=== PATIENT | female | born 1930 | race Caucasian/White ===

== ENCOUNTER 2016-06-18 12:45 | Inpatient (IN) | payer MEDICARE, OTHER ==
--- NOTE | 2016-06-18 13:18 | EDM.PDOC ---
ED HISTORY OF PRESENT ILLNESS - General Chief Complaint: Respiratory Problem Stated Complaint: BY AMBULANCE Time Seen by Provider: 06/18/16 13:18 Source of Information: Reports: EMS, prison records, Old records, RN, RN notes reviewed - History of Present Illness INITIAL COMMENTS - FREE TEXT/NARRATIVE: Arrived by ambulance from senior living with history of 3-4 days of cough/cold symptoms and sudden onset of severe cough, possible aspiration with respiratory failure prior to arrival. Severity: moderate Location, General: Reports: chest Improves with: Reports: None Worsens with: Reports: None - Related Data Allergies/ADRs: Allergies Allergy/AdvReac Type Severity Reaction Status Date / Time atorvastatin calcium Allergy Body Aches Verified 06/18/16 15:35 [From Lipitor] tramadol Allergy Dizziness Verified 06/18/16 15:35 triamterene [Triamterene] Allergy Cannot Verified 06/18/16 15:35 Remember oxycodone HCl [From Percocet] AdvReac Cannot Verified 06/18/16 15:35 Remember Home Meds: Home Meds Alendronate [Fosamax] 70 mg PO Q7D@0609/21/13 [History] Aspirin [Ecotrin] 81 [place] 79909/21/13 [History] Calcium Carbonate/Vitamin D3 [Calcium 250+D] 1 each PO ,09/21/13 [History] Levothyroxine [Synthroid] [place] [address]/21/13 [History] Metoprolol Tartrate 75 mg PO 09/21/13 [History] Multivit-Min/FA/Lycopene/Lut [Centrum Silver] 1 each PO 79909/21/13 [History] Phenytoin Sodium Extended [Dilantin] 100 mg PO 199909/21/13 [History] Phenytoin [Dilantin] 60 mg PO 79910/15/14 [History] Acetaminophen [Tylenol] 650 mg PO BID PRN 03/10/16 [History] Escitalopram [Lexapro] 10 mg PO 0803/10/16 [History] Menthol/Methyl Salicylate [Icy Hot Cream] 0 gm TOP Q4H PRN #0 tube 04/04/16 [Rx] Pantoprazole [Protonix] 40 mg PO ACBREAKFAST #30 tab.cr 04/04/16 [Rx] Docusate Sodium/Sennosides [Senna Plus] 1 tab PO 08,20 06/18/16 [History] Lidocaine [Lidocaine 5% Paraben-Free] 140 mg TRDERM 2100 06/18/16 [History] Potassium Chloride [Klor-Con 10] 20 meq PO Q48H 06/18/16 [History] amLODIPine [Norvasc] 10 mg PO 0800 06/18/16 [History] oxyCODONE 5 mg PO 08,14,20 06/18/16 [History] Past Medical History HEENT History: Reports: Impaired vision Other HEENT History: Patient wears glasses. 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: Musculoskeletal History: Reports: Osteoporosis Neurological History: Reports: CVA, Seizure Other Neuro History: see below Psychiatric History: Reports: Depression Endocrine/Metabolic History: Reports: Hypothyroidism, Osteoporosis Oncologic (Cancer) History: Reports: Colon Dermatologic History: Reports: Eczema Other Dermatologic History: denies - Past Surgical History Cardiovascular Surgical History: Reports: Carotid endarterectomy GI Surgical History: Reports: Colonoscopy Social & Family History - Family History Family Medical History: Noncontributory - Tobacco Use Smoking Status *Q: Never Smoker Second Hand Smoke Exposure: No - Caffeine Use Caffeine Use: Reports: None - Alcohol Use Days Per Week of Alcohol Use: 0 - Recreational Drug Use Recreational Drug Use: No Drug Use in Last 12 Months: No - Living Situation & Occupation Living situation: Reports: extended care facility ED ROS GENERAL - Review of Systems Review Of Systems: ROS reveals no pertinent complaints other than HPI. ED EXAM, GENERAL - Physical Exam Exam: See Below Exam Limited By: No limitations General Appearance: other (acute respiratory distress) Eye Exam: bilateral eye: normal inspection Ears: normal external exam, normal canal, hearing grossly normal, normal TMs Nose: normal inspection, normal mucosa, no blood Throat/Mouth: Normal inspection, Normal lips, Normal teeth, Normal gums, Normal oropharynx, Normal voice, No airway compromise Head: atraumatic, normocephalic Neck: normal inspection, supple, non-tender, full range of motion Respiratory/Chest: rhonchi (severe course rhonchi with faint wheezes ffor upper airway significant decreased sounds in bilateral lower half of lung temple. ) Cardiovascular: normal peripheral pulses, regular rate, rhythm, no edema, no gallop, no JVD, no murmur, no rub GI/Abdominal: non tender, no distention, other (obese) (Female) Exam: Deferred Rectal (Female) Exam: Deferred Back Exam: normal inspection, full range of motion, NT Extremities: other (bilateral 1+ lower extremity edema with River hose (knee high) .) Neurological: no motor/sensory deficits, other (decreased responsiveness on arrival. Answers and responds appropriately with BiPAP.) EKG INTERPRETATION EKG Date: 06/18/16 Time: 13:55 Rhythm: other (sinus rhythm) Rate (beats/min): 91 [place]: normal P-wave: present QRS: other (multiple atrial premature complexes.) ST-T: normal QT: normal Comparison: NA - no prior EKG Course - Vital Signs Last Recorded V/S: Last Vital Signs Temp 37.1 C 06/18/16 15:32 Pulse 85 06/18/16 15:32 Resp 16 06/18/16 15:32 BP 109/58 L 06/18/16 15:32 Pulse Ox 96 06/18/16 15:38 - Orders/Labs/Meds Orders: Active Orders 24 hr Category Date Time Status BIPAP Adult [RT BiPAP/CPAP] [RC] ASDIRECTED Care 06/18/16 13:28 Active Insert Roberson Catheter [Insert Urinary Catheter] [OM.PC] Care 06/18/16 13:30 Ordered Q24H Overnight Pulse Oximetry [RC] Click To Edit Care 06/18/16 13:27 Active Peripheral IV Care [RC] Care 06/18/16 13:27 Active RT Aerosol Therapy [RC] ASDIRECTED Care 06/18/16 13:30 Active Urinary Catheter Assessment [RC] Care 06/18/16 13:29 Active CULTURE BLOOD [BC] Stat Lab 06/18/16 13:25 Received CULTURE BLOOD [BC] Stat Lab 06/18/16 13:35 Results Sodium Chloride 0.9% [Saline Flush] Med 06/18/16 13:26 Active 10 ml FLUSH ASDIRECTED PRN Blood Culture x2 Reflex Set [OM.PC] Stat Oth 06/18/16 13:27 Ordered Peripheral IV Insertion Adult [OM.PC] Stat Oth 06/18/16 13:26 Ordered Pulse Oximetry Continuous Monitoring [OM.PC] Routine Oth 06/18/16 13:27 Ordered RT Supplemental Oxygen Titration [RESPCARE] Stat Oth 06/18/16 13:27 Active Medication Orders Acetaminophen (Tylenol) 650 mg PO Q4H PRN PRN Reason: Pain (Mild 1-3)/fever Sodium Chloride (Normal Saline) 1,000 mls @ 75 mls/hr IV ASDIRECTED LIYA Stop: 06/18/16 22:31 Ondansetron HCl (Zofran) 4 mg IVPUSH Q6H PRN PRN Reason: Nausea/Vomiting Sodium Chloride (Saline Flush) 10 ml FLUSH ASDIRECTED PRN PRN Reason: Keep Vein Open Last Admin: 06/18/16 14:07 Dose: 10 ml Labs: Laboratory Tests 06/18/16 06/18/16 06/18/16 Range/Units 13:25 13:25 13:25 WBC 12.1 H (5.0-10.0) 10^3/uL RBC 4.90 (4.2-5.4) 10^6/uL Hgb 14.8 (12.0-16.0) g/dL Hct 42.4 (37.0-47.0) % MCV 86.5 (80-100) fL MCH 30.2 (27.0-34.0) pg MCHC 34.9 (33.0-35.0) g/dL Plt Count 233 (150-450) 10^3/uL Neut % (Auto) 69.3 (42.2-75.2) % Lymph % (Auto) 20.5 (20.5-50.1) % Hand % (Auto) 9.6 H (2-8) % Eos % (Auto) 0.3 L (1.0-3.0) % Baso % (Auto) 0.3 (0.0-1.0) % ABG pH (7.35-7.45) ABG pCO2 (35-45) mmHg ABG pO2 (70-100) mmHg ABG HCO3 (22-26) mmol/L ABG O2 Saturation (95-100) % ABG Base Excess ((-2)-(+3)) mmol/L Mingo Test O2 Delivery Device Oxygen Flow Rate Sodium 123 L (135-145) mmol/L Potassium 4.0 (3.6-5.0) mmol/L Chloride 91 L (101-111) mmol/L Carbon Dioxide 21.0 (21.0-31.0) mmol/L Anion Gap 15.0 BUN 15 (7-18) mg/dL Creatinine 0.8 (0.6-1.3) mg/dL Est Cr Clr Drug Dosing TNP Estimated GFR (MDRD) > 60 BUN/Creatinine Ratio 18.75 Glucose 195 H (74-105) mg/dL Lactic Acid (0.5-2.2) mmol/L Calcium 8.4 (8.4-10.2) mg/dl Total Bilirubin 0.4 (0.2-1.0) mg/dL AST 45 H (10-42) IU/L ALT 36 (10-60) IU/L Alkaline Phosphatase 120 (42-121) IU/L Creatine Kinase 45 (26-174) IU/L Creatine Kinase Index 3.6 H (0-2.4) % CK-MB (CK-2) 1.60 (0.4-4.7) ng/mL Troponin I 0.08 H* (0.00-0.02) ng/ml B-Natriuretic Peptide 255 H (0-100) pg/ml Total Protein 7.5 (6.7-8.2) g/dl Albumin 3.6 (3.2-5.5) g/dl Globulin 3.9 Albumin/Globulin Ratio 0.92 Urine Color (YELLOW) Urine Appearance (CLEAR) Urine pH (5.0-9.0) Ur Specific Ript[place] (1.005-1.030) Urine Protein (NEGATIVE) Urine Glucose (UA) (NEGATIVE) Urine Ketones (NEGATIVE) Urine Occult Blood (NEGATIVE) Urine Nitrite (NEGATIVE) Urine Bilirubin (NEGATIVE) Urine Urobilinogen (0.2-1.0) mg/dL Ur Leukocyte Esterase (NEGATIVE) Urine RBC /HPF Urine WBC (0-5/HPF) /HPF Ur Epithelial Cells /HPF Urine Bacteria (0-FEW/HPF) /HPF Phenytoin 8.4 L (10-20) ug/dL 06/18/16 06/18/16 06/18/16 Range/Units 13:25 13:52 14:25 WBC (5.0-10.0) 10^3/uL RBC (4.2-5.4) 10^6/uL Hgb (12.0-16.0) g/dL Hct (37.0-47.0) % MCV (80-100) fL MCH (27.0-34.0) pg MCHC (33.0-35.0) g/dL Plt Count (150-450) 10^3/uL Neut % (Auto) (42.2-75.2) % Lymph % (Auto) (20.5-50.1) % Hand % (Auto) (2-8) % Eos % (Auto) (1.0-3.0) % Baso % (Auto) (0.0-1.0) % ABG pH 7.38 (7.35-7.45) ABG pCO2 37 (35-45) mmHg ABG pO2 79 (70-100) mmHg ABG HCO3 21.4 L (22-26) mmol/L ABG O2 Saturation 95 (95-100) % ABG Base Excess -3 L ((-2)-(+3)) mmol/L Mingo Test pos. O2 Delivery Device Bipap Oxygen Flow Rate 0 Sodium (135-145) mmol/L Potassium (3.6-5.0) mmol/L Chloride (101-111) mmol/L Carbon Dioxide (21.0-31.0) mmol/L Anion Gap BUN (7-18) mg/dL Creatinine (0.6-1.3) mg/dL Est Cr Clr Drug Dosing Estimated GFR (MDRD) BUN/Creatinine Ratio Glucose (74-105) mg/dL Lactic Acid 1.3 (0.5-2.2) mmol/L Calcium (8.4-10.2) mg/dl Total Bilirubin (0.2-1.0) mg/dL AST (10-42) IU/L ALT (10-60) IU/L Alkaline Phosphatase (42-121) IU/L Creatine Kinase (26-174) IU/L Creatine Kinase Index (0-2.4) % CK-MB (CK-2) (0.4-4.7) ng/mL Troponin I (0.00-0.02) ng/ml B-Natriuretic Peptide (0-100) pg/ml Total Protein (6.7-8.2) g/dl Albumin (3.2-5.5) g/dl Globulin Albumin/Globulin Ratio Urine Color Yellow (YELLOW) Urine Appearance Slightly cloudy (CLEAR) Urine pH 6.5 (5.0-9.0) Ur Specific R[place] >= 1.030 (1.005-1.030) Urine Protein >=300 H (NEGATIVE) Urine Glucose (UA) Negative (NEGATIVE) Urine Ketones Negative (NEGATIVE) Urine Occult Blood Moderate H (NEGATIVE) Urine Nitrite Negative (NEGATIVE) Urine Bilirubin Negative (NEGATIVE) Urine Urobilinogen 0.2 (0.2-1.0) mg/dL Ur Leukocyte Esterase Negative (NEGATIVE) Urine RBC 0-5 /HPF Urine WBC 0-5 (0-5/HPF) /HPF Ur Epithelial Cells Rare /HPF Urine Bacteria Many H (0-FEW/HPF) /HPF Phenytoin (10-20) ug/dL Meds: Medications Generic Name Dose Route Start Last Admin Trade Name Nedra PRN Reason Stop Dose Admin Acetaminophen 650 mg 06/18/16 15:32 Tylenol PO Q4H PRN Pain (Mild 1-3)/fever Sodium Chloride 1,000 mls @ 75 mls/hr 06/18/16 16:30 Normal Saline IV 06/18/16 22:31 ASDIRECTED LIYA Ondansetron HCl 4 mg 06/18/16 15:32 Zofran IVPUSH Q6H PRN Nausea/Vomiting Sodium Chloride 10 ml 06/18/16 13:26 06/18/16 14:07 Saline Flush FLUSH 10 ml ASDIRECTED PRN Administration Keep Vein Open Discontinued Medications Generic Name Dose Route Start Last Admin Trade Name Nedra PRN Reason Stop Dose Admin Albuterol/Ipratropium 3 ml 06/18/16 13:30 06/18/16 13:45 Duoneb 3.0-0.5 Mg/3 Ml NEB 06/18/16 13:31 3 ml ONETIME ONE Administration Furosemide Confirm 06/18/16 13:23 06/18/16 14:56 Lasix Administered 06/18/16 13:24 Not Given Dose 80 mg .ROUTE .STK-MED ONE Furosemide 80 mg 06/18/16 13:25 06/18/16 13:25 Lasix IVPUSH 06/18/16 13:26 80 mg NOW ONE Administration Piperacillin Sod/Tazobactam 100 mls @ 200 mls/hr 06/18/16 13:30 06/18/16 13: 45 Sod 3.375 gm/ Sodium Chloride IV 06/18/16 13:59 200 mls/hr ONETIME ONE Administration Sodium Chloride 1,000 mls @ 150 mls/hr 06/18/16 14:15 06/18/16 14:29 Normal Saline IV 150 mls/hr ASDIRECTED LIYA Administration - Radiology Interpretation Free Text/Narrative:: Chest x-ray per rad report: No lobar pneumonia, atelectasis or collapse. No pneumothorax. - Re-Assessments/Exams Free Text/Narrative Re-Assessment/Exam: 06/18/16 16:24 Patient DNR/DNI--code level II per senior living record and daughter. Patient/ family does not wish to be transferred or to have cardiology consult. Departure - Departure Time of Disposition: 15:49 (Dr. Aquino) Disposition: Admitted As Inpatient 65 Condition: serious Clinical Impression: Aspiration pneumonitis, Cardiac enzymes elevated Respiratory failure Qualifiers: Chronicity: acute Respiratory failure complication: unspecified whether with hypoxia or hypercapnia Qualified Code(s): J96.00 - Acute respiratory failure, unspecified whether with hypoxia or hypercapnia - My Orders Last 24 Hours: My Active Orders 06/18/16 13:25 CULTURE BLOOD [BC] Stat 06/18/16 13:26 Sodium Chloride 0.9% [Saline Flush] 10 ml FLUSH ASDIRECTED PRN Peripheral IV Insertion Adult [OM.PC] Stat 06/18/16 13:27 Overnight Pulse Oximetry [RC] Click To Edit Peripheral IV Care [RC] Blood Culture x2 Reflex Set [OM.PC] Stat Pulse Oximetry Continuous Monitoring [OM.PC] Routine RT Supplemental Oxygen Titration [RESPCARE] Stat 06/18/16 13:28 BIPAP Adult [RT BiPAP/CPAP] [RC] ASDIRECTED 06/18/16 13:29 Urinary Catheter Assessment [RC] 09,06/18/16 13:30 Insert Roberson Catheter [Insert Urinary Catheter] [OM.PC] Q24H RT Aerosol Therapy [RC] ASDIRECTED 06/18/16 13:35 CULTURE BLOOD [BC] Stat - Assessment/Plan Last 24 Hours: My Active Orders 06/18/16 13:25 CULTURE BLOOD [BC] Stat 06/18/16 13:26 Sodium Chloride 0.9% [Saline Flush] 10 ml FLUSH ASDIRECTED PRN Peripheral IV Insertion Adult [OM.PC] Stat 06/18/16 13:27 Overnight Pulse Oximetry [RC] Click To Edit Peripheral IV Care [RC] Blood Culture x2 Reflex Set [OM.PC] Stat Pulse Oximetry Continuous Monitoring [OM.PC] Routine RT Supplemental Oxygen Titration [RESPCARE] Stat 06/18/16 13:28 BIPAP Adult [RT BiPAP/CPAP] [RC] ASDIRECTED 06/18/16 13:29 Urinary Catheter Assessment [RC] 06/18/16 13:30 Insert Roberson Catheter [Insert Urinary Catheter] [OM.PC] Q24H RT Aerosol Therapy [RC] ASDIRECTED 06/18/16 13:35 CULTURE BLOOD [BC] Stat
[2016-06-18] MEDS ORDERED: Furosemide 40 MG/4 ML VIAL ONE (13:23)
[2016-06-18] MEDS ORDERED: Furosemide 40 MG/4 ML VIAL IVPUSH ONE (13:25)
[2016-06-18] MEDS ORDERED: Piperacillin/Tazobactam 3.375 GM in Sodium Chloride 0.9% 100 ML IV ONE (13:30)
[2016-06-18] MEDS ORDERED: Albuterol/Ipratropium 3.0-0.5 MG/3 ML Neb Soln NEB ONE (13:30)
[2016-06-18 14:04] LABS: CHLORIDE,CL 91 mmol/L (101-111); SODIUM,NA 123 mmol/L (135-145)
[2016-06-18] MEDS: Sodium Chloride 0.9% 10 ML Syringe FLUSH PRN (14:07)
[2016-06-18] MEDS ORDERED: Sodium Chloride 0.9% 1,000 ML IV SCH ×2 (14:15→16:30)
--- NOTE | 2016-06-18 14:19 | CR ---
CLINICAL HISTORY: 85-year-old female with cough and respiratory distress. INTERPRETATION: Motion artifact but no new signs of heart failure or focal lobar pneumonia when comp ared directly to 14 Oct 2014 exam. Calcifications ectatic aorta. Normal cardiac silhouette without alveolar edema or dependent effusion . No lobar pneumonia, atelectasis or collapse. No pneumothorax.
[2016-06-18 14:35] LABS: O2 DELIVERY DEVICE BIPAP; O2 FLOW RATE 0
[2016-06-18 14:37] LABS: BASE EXCESS ARTERIAL -3 mmol/L ((-2)-(+3)); BICARBONATE,ARTERIAL 21.4 mmol/L (22-26); O2 SATURATION ARTERIAL 95 % (95-100); PCO2 ARTERIAL 37 mmHg (35-45); PO2 ARTERIAL 79 mmHg (70-100)
[2016-06-18] MEDS ORDERED: Ondansetron 4 MG/2 ML SDV IVPUSH PRN (15:32)
[2016-06-18] MEDS ORDERED: Acetaminophen 325 MG Tab PO PRN (15:32)
--- NOTE | 2016-06-18 15:32 | PCM.HP ---
H&P History of Present Illness - General Date of Service: 06/18/16 Admit Problem/Dx: Magalis is a 85 y/o resident in local SNF who presents in acute hypoxic respiratory failure. Per longterm staff the pt had been noted to have cough and congestion for past several days but no f/c and otherwise at her baseline (in fact were considering transfer to assisted living soon) . today staff heard gasping,choking and wheezing, they rushed to find Magalis in acute respiratory distress. They presumed she had aspirated and tried to suction her. Despite their interventions she remained hypoxic with sats in the mid 80s. PT was transported to EOD for evaluation. PT placed on BiPAP with oxygen and sats increased to mid 90s. Lungs initially sounded wet and rhonchus so dose of lasix was given; however, subsequent CXR did not reveal any pulm edema, effusions or obvious infilatrative process. WBC mildly elevated at 12; dilantin level low at 8.4. pt also noted to have sodium of 123 - which is actually near her baseline. Troponin was mildly elevated at 0.08 however family does not want any aggressive w/u or treatment for cardiac events. PT is DNR/DNI. Family declines transfer to higher level of care for aggressive treatments. pt is in resp distress on bipap, sleepy but arouses. answers short yes/no. denies any pain. endorses SOB, cough, daughter state pt has not had nay f/c, no Gu or GI symptoms , no h/o heart dz but did have CEA in the past. Source of Information: Family, Old records, Provider - Related Data Allergies/Adverse Reactions: Allergies Allergy/AdvReac Type Severity Reaction Status Date / Time atorvastatin calcium Allergy Body Aches Verified 06/18/16 15:35 [From Lipitor] tramadol Allergy Dizziness Verified 06/18/16 15:35 triamterene [Triamterene] Allergy Cannot Verified 06/18/16 15:35 Remember oxycodone HCl [From Percocet] AdvReac Cannot Verified 06/18/16 15:35 Remember Home Medications: Home Meds Alendronate [Fosamax] 70 mg PO Q7D@0600 09/21/13 [History] Aspirin [Ecotrin] 81 mg PO 0800 09/21/13 [History] Calcium Carbonate/Vitamin D3 [Calcium 250+D] 1 each PO ,09/21/13 [History] Levothyroxine [Synthroid] 50 mcg PO 0609/21/13 [History] Metoprolol Tartrate 75 mg PO ,09/21/13 [History] Multivit-Min/FA/Lycopene/Lut [Centrum Silver] 1 each PO 79909/21/13 [History] Phenytoin Sodium Extended [Dilantin] 100 mg PO 199909/21/13 [History] Phenytoin [Dilantin] 60 mg PO 79910/15/14 [History] Acetaminophen [Tylenol] 650 mg PO BID PRN 03/10/16 [History] Escitalopram [Lexapro] 10 [place] 79903/10/16 [History] Menthol/Methyl Salicylate [Icy Hot Cream] 0 gm TOP Q4H PRN #0 tube 04/04/16 [Rx] Pantoprazole [Protonix] 40 mg PO ACBREAKFAST #30 tab.cr 04/04/16 [Rx] Docusate Sodium/Sennosides [Senna Plus] 1 tab PO ,06/18/16 [History] Lidocaine [Lidocaine 5% Paraben-Free] 140 mg TRDERM 2100 06/18/16 [History] Potassium Chloride [Klor-Con 10] 20 meq PO Q48H 06/18/16 [History] amLODIPine [Norvasc] 10 mg PO 0800 06/18/16 [History] oxyCODONE 5 mg PO 08,14,20 06/18/16 [History] Past Medical History HEENT History: Reports: Impaired vision Other HEENT History: Patient wears glasses. 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: Musculoskeletal History: Reports: Osteoporosis Neurological History: Reports: CVA, Seizure Other Neuro History: see below Psychiatric History: Reports: Depression Endocrine/Metabolic History: Reports: Hypothyroidism, Osteoporosis Oncologic (Cancer) History: Reports: Colon Dermatologic History: Reports: Eczema Other Dermatologic History: denies - Past Surgical History Cardiovascular Surgical History: Reports: Carotid endarterectomy GI Surgical History: Reports: Colonoscopy Social & Family History - Family History Family Medical History: Noncontributory - Tobacco Use Smoking Status *Q: Never Smoker Second Hand Smoke Exposure: No - Caffeine Use Caffeine Use: Reports: None - Alcohol Use Days Per Week of Alcohol Use: 0 - Recreational Drug Use Recreational Drug Use: No Drug Use in Last 12 Months: No H&P Review of Systems - Review of Systems: Review Of Systems: See Below Free Text/Narrative: unable to obtain from pt in respiratory distress on BIPAP . ROS obtained from duaghter- see HPI comments Pulmonary: Reports: shortness of breath, wheezing, cough, sputum Exam - Exam Exam: See Below - Vital Signs Vital Signs: Last Vital Signs Temp Pulse 81 06/18/16 14:37 Resp 20 06/18/16 14:37 BP 109/58 L 06/18/16 14:37 Pulse Ox 92 L 06/18/16 14:37 Weight: 71.781 kg - Exam General: cooperative (can follow simple requests - move legs etc. ) HEENT: Conjunctiva clear Lungs: Rhonchi, Other (asseccory muscl use ) Cardiovascular: regular rate, regular rhythm Abdomen: normal bowel sounds, soft Extremities: normal inspection Peripheral Pulses: 2+: radial (L), radial (R), dorsalis pedis (L), dorsalis pedis (R) Skin: warm Neuro Extensive - Mental Status: other (sleepy but easily awakens with verbal stim. follows simple commands answers yes/no questons. +spontanous movment upper and lowe extremities. strength appears equal ) - Patient Data Result Diagrams: 06/18/16 13:25 06/18/16 13:25 EKG INTERPRETATION EKG Date: 06/18/16 Rhythm: NSR (no acute st or t wave changes; few PAC) *Q Meaningful Use (ADM) - VTE *Q VTE Criteria *Q: - Stroke *Q Stroke Criteria *Q: - AMI *Q AMI Criteria *Q: - Problem List (1) NSTEMI (non-ST elevated myocardial infarction) SNOMED Code(s): 63641823 ICD Code: I21.4 - NON-ST ELEVATION (NSTEMI) MYOCARDIAL INFARCTION Status: Acute Priority: High Current Visit: Yes (2) Aspiration pneumonitis SNOMED Code(s): 179835699 ICD Code: J69.0 - PNEUMONITIS DUE TO INHALATION OF FOOD AND VOMIT Status: Acute Priority: High Current Visit: Yes (3) Respiratory failure SNOMED Code(s): 589895257 ICD Code: J96.90 - RESPIRATORY FAILURE, UNSP, UNSP W HYPOXIA OR HYPERCAPNIA Status: Acute Priority: High Current Visit: Yes Qualifiers: Chronicity: acute Respiratory failure complication: unspecified whether with hypoxia or hypercapnia Qualified Code(s): J96.00 - Acute respiratory failure, unspecified whether with hypoxia or hypercapnia Problem List Initiated/Reviewed/Updated: Yes Orders Last 24hrs: Medication Orders Sodium Chloride (Normal Saline) 1,000 mls @ 150 mls/hr IV ASDIRECTED LIYA Last Admin: 06/18/16 14:29 Dose: 150 mls/hr Sodium Chloride (Saline Flush) 10 ml FLUSH ASDIRECTED PRN PRN Reason: Keep Vein Open Last Admin: 06/18/16 14:07 Dose: 10 ml Assessment/Plan Comment:: acute hypoxic respiratory failure - due to probable aspriation pneumonitis -unwitness event- DDX- aspiration on mucus most likely given recent clinical history, perhaps a mucus plug, also consider, cardiac event- has elevated trops , or seizure -has h/o seizure and dilantin level is low. less likely CVA event -sats of 84% on RA - -ABG 7.3/37/79 - on bipap -now sats mid 90s on biapa- 40% - -CXR - clear- likely early so expect changes possible in am if early PNA / aspiration -will try wean as able -will cont zosyn started in EOD - given possible early PNA or risk of developing aspiration PNA in next 7-10 days -given age and comorbities -will schedule nebs for next 24 hours and PRN NSTEMI -elevated top at 0.08 ; decent renal fx so likely not from clearing -no prior diz- risk factors- age, HTN, HLD, h/o carotid dz -DDX - acute ischemic event vs strain due to resp failure -no cardiac history; no recent c/o CP, SHULTZ< edema, or orthopnea =EKG- no st / t wave changes - d/w daughter- no aggressive measure but full med management- including hep drip if indicated -suspect strain - will follow trop is become progressive + will start hep drip -treat with ASA, statin, will hold on BB given acaute resp distress and less likely ischemi event h/o Seizures - low dilantin level- looks like last level was low too- in 8 range as well - today 8.4 -has abscense seizures - but none for years -cont current doses - has h/o dilantin toxicity Hyponatremia -chronic levels in mid/high 120s=- so just below her baseline -due to her dilantin -cont fluid restriction -limit IV fluids to 500 cc -recheck level tonght to be sure not falling below 120 - may need salt tab chronic diagnosis- hypothyroid, depression, h/o carotid dz, HTN, osteoporosis, obesity- BMI 32- HDL - stable cont home meds hep DVT PPX - will need to d/c if start hep drip DNR/DNI per d/w daughter.
[2016-06-18] MEDS ORDERED: Albuterol/Ipratropium 3.0-0.5 MG/3 ML Neb Soln NEB PRN (17:01)
--- NOTE | 2016-06-18 18:12 | EKG ---
06/18/2016 - FAITH DURANT - TIME: 1628 hours. EKG shows normal sinus rhythm at 83 beats per minute. There are PACs present. No acute ST or T-wave changes. [facility] /[id number]
[2016-06-18] MEDS: Albuterol/Ipratropium 3.0-0.5 MG/3 ML Neb Soln NEB SCH (19:18)
[2016-06-18] MEDS: Metoprolol Tartrate 25 MG Tab PO SCH (20:26)
[2016-06-18] MEDS: Phenytoin 100 MG Cap.ER PO SCH (20:27)
[2016-06-18] MEDS: oxyCODONE 5 MG Tab PO SCH (20:27)
[2016-06-18] MEDS: atorvaSTATin 20 MG Tab PO SCH (20:46)
[2016-06-18] MEDS: Lidocaine 5% 700 MG Patch TRDERM SCH (21:11)
[2016-06-18] MEDS ORDERED: Heparin Sodium 5,000 Units/ML Vial IV ONE (23:30)
[2016-06-18] MEDS ORDERED: Heparin Sodium 5,000 Units/ML Vial IV PRN (23:35)
[2016-06-19] MEDS: Albuterol/Ipratropium 3.0-0.5 MG/3 ML Neb Soln NEB SCH ×7 (00:15→23:21)
[2016-06-19] MEDS ORDERED: Heparin Sodium/D5W 25,000 UNITS/500 ML BAG IV SCH ×3 (00:30→15:45)
[2016-06-19] MEDS ORDERED: Pantoprazole 40 MG Tab.CR PO SCH (06:00)
[2016-06-19] MEDS: Levothyroxine 50 MCG Tab PO SCH (06:21)
[2016-06-19] MEDS ORDERED: Clopidogrel 75 MG Tab PO ONE ×2 (06:46→09:30)
[2016-06-19] MEDS ORDERED: Morphine 2 MG/ML Syringe IVPUSH PRN (07:39)
[2016-06-19] MEDS ORDERED: Potassium Chloride 10 MEQ Tab.ER PO SCH (08:00)
[2016-06-19] MEDS ORDERED: amLODIPine 5 MG Tab PO SCH (08:00)
[2016-06-19] MEDS: Phenytoin 30 MG Cap.ER PO SCH (09:34)
[2016-06-19] MEDS: Metoprolol Tartrate 25 MG Tab PO SCH ×2 (09:35→20:25)
[2016-06-19] MEDS: Aspirin 81 MG Tab.EC PO SCH (09:35)
[2016-06-19] MEDS: oxyCODONE 5 MG Tab PO SCH ×3 (09:37→20:26)
[2016-06-19] MEDS: Escitalopram 10 MG Tab PO SCH (09:39)
[2016-06-19] MEDS: Sodium Chloride 0.9% 10 ML Syringe FLUSH PRN (09:46)
[2016-06-19] MEDS: Pantoprazole 40 MG Vial IVPUSH SCH (09:48)
--- NOTE | 2016-06-19 09:48 | CR ---
CLINICAL HISTORY: 85-year-old female with clinical hypoxia. INTERPRETATION: No acute new cardiopulmonary abnormality identified in the interval since 18 June 2016 exam which was also unchanged from earlier AP chest exam of 14 Oct 2014. Normal cardiac silhouette without alveolar edema or dependent effusion. No lung mass, hilar lymphadenopathy or focal lobar pneumonia. No atelectasis/collapse. No pneumothorax. CONCLUSION: No acute cardiopulmonary abnormality.
[2016-06-19] MEDS ORDERED: Heparin Sodium 5,000 Units/ML Vial IV PRN (13:40)
--- NOTE | 2016-06-19 16:19 | PCM.PN ---
- General Info Date of Service: 06/19/16 Subjective Update: pt did well overnight; she is awake and orientated this am. she has no recollection of yesterdays events. She denies any current pain. She does endorse SOB and a cough . no n/v. no [place]. no dizziness, no CP. Functional Status: Reports: pain controlled, tolerating diet, urinating - Review of Systems General: Reports: no symptoms HEENT: Reports: no symptoms Pulmonary: Reports: shortness of breath, cough, sputum (but has difficulty getting it all the way up- states usually gets stuck in her throat. ) Cardiovascular: Reports: no symptoms Gastrointestinal: Reports: No symptoms Genitourinary: Reports: no symptoms Musculoskeletal: Reports: no symptoms Skin: Reports: no symptoms - Patient Data Vitals - most recent: Last Vital Signs Temp 36.4 C 06/19/16 12:09 Pulse 66 06/19/16 13:57 Resp 14 06/19/16 12:09 BP 95/54 L 06/19/16 12:09 Pulse Ox 93 L 06/19/16 09:03 Weight - most recent: 71.781 kg I&O - last 24 hours: Intake & Output 06/19/16 06/19/16 06/19/16 06:59 14:59 22:59 Intake Total 21 510 Output Total 200 100 Balance -179 410 Lab Results last 24 hrs: Laboratory Results - last 24 hr 06/18/16 06/18/16 06/18/16 Range/Units 21:05 22:05 23:15 WBC (5.0-10.0) 10^3/uL RBC (4.2-5.4) 10^6/uL Hgb (12.0-16.0) g/dL Hct (37.0-47.0) % MCV (80-100) fL MCH (27.0-34.0) pg MCHC (33.0-35.0) g/dL Plt Count (150-450) 10^3/uL Neut % (Auto) (42.2-75.2) % Lymph % (Auto) (20.5-50.1) % [place] % (Auto) (2-8) % Eos % (Auto) (1.0-3.0) % Baso % (Auto) (0.0-1.0) % APTT 33.4 (22.0-34.0) SEC Sodium 127 L (135-145) mmol/L Potassium (3.6-5.0) mmol/L Chloride (101-111) mmol/L Carbon Dioxide (21.0-31.0) mmol/L Anion Gap BUN (7-18) mg/dL Creatinine (0.6-1.3) mg/dL Est Cr Clr Drug Dosing mL/min Estimated GFR (MDRD) Glucose (74-105) mg/dL Calcium (8.4-10.2) mg/dl Troponin I 2.49 H* 2.80 H* (0.00-0.02) ng/ml B-Natriuretic Peptide (0-100) pg/ml 06/19/16 06/19/16 06/19/16 Range/Units 06:10 06:10 06:10 WBC 12.2 H (5.0-10.0) 10^3/uL RBC 4.45 (4.2-5.4) 10^6/uL Hgb 13.3 (12.0-16.0) g/dL Hct 38.0 (37.0-47.0) % MCV 85.4 (80-100) fL MCH 29.9 (27.0-34.0) pg MCHC 35.0 (33.0-35.0) g/dL Plt Count 194 (150-450) 10^3/uL Neut % (Auto) 79.0 H (42.2-75.2) % Lymph % (Auto) 10.7 L (20.5-50.1) % [place] % (Auto) 10.1 H (2-8) % Eos % (Auto) 0.0 L (1.0-3.0) % Baso % (Auto) 0.2 (0.0-1.0) % APTT (22.0-34.0) SEC Sodium 124 L (135-145) mmol/L Potassium 3.4 L (3.6-5.0) mmol/L Chloride 88 L (101-111) mmol/L Carbon Dioxide 24.0 (21.0-31.0) mmol/L Anion Gap 15.4 BUN 24 H (7-18) mg/dL Creatinine 1.3 (0.6-1.3) mg/dL Est Cr Clr Drug Dosing 22.31 mL/min Estimated GFR (MDRD) 39 Glucose 132 H (74-105) mg/dL Calcium 7.7 L (8.4-10.2) mg/dl Troponin I 2.11 H* (0.00-0.02) ng/ml B-Natriuretic Peptide (0-100) pg/ml 06/19/16 06/19/16 06/19/16 Range/Units 06:10 06:10 11:52 WBC (5.0-10.0) 10^3/uL RBC (4.2-5.4) 10^6/uL Hgb (12.0-16.0) g/dL Hct (37.0-47.0) % MCV (80-100) fL MCH (27.0-34.0) pg MCHC (33.0-35.0) g/dL Plt Count (150-450) 10^3/uL Neut % (Auto) (42.2-75.2) % Lymph % (Auto) (20.5-50.1) % [place] % (Auto) (2-8) % Eos % (Auto) (1.0-3.0) % Baso % (Auto) (0.0-1.0) % APTT > 120.0 H* > 120.0 H* (22.0-34.0) SEC Sodium (135-145) mmol/L Potassium (3.6-5.0) mmol/L Chloride (101-111) mmol/L Carbon Dioxide (21.0-31.0) mmol/L Anion Gap BUN (7-18) mg/dL Creatinine (0.6-1.3) mg/dL Est Cr Clr Drug Dosing mL/min Estimated GFR (MDRD) Glucose (74-105) mg/dL Calcium (8.4-10.2) mg/dl Troponin I (0.00-0.02) ng/ml B-Natriuretic Peptide 586 H (0-100) pg/ml 06/19/16 Range/Units 11:52 WBC (5.0-10.0) 10^3/uL RBC (4.2-5.4) 10^6/uL Hgb (12.0-16.0) g/dL Hct (37.0-47.0) % MCV (80-100) fL MCH (27.0-34.0) pg MCHC (33.0-35.0) g/dL Plt Count (150-450) 10^3/uL Neut % (Auto) (42.2-75.2) % Lymph % (Auto) (20.5-50.1) % [place] % (Auto) (2-8) % Eos % (Auto) (1.0-3.0) % Baso % (Auto) (0.0-1.0) % APTT (22.0-34.0) SEC Sodium (135-145) mmol/L Potassium (3.6-5.0) mmol/L Chloride (101-111) mmol/L Carbon Dioxide (21.0-31.0) mmol/L Anion Gap BUN (7-18) mg/dL Creatinine (0.6-1.3) mg/dL Est Cr Clr Drug Dosing mL/min Estimated GFR (MDRD) Glucose (74-105) mg/dL Calcium (8.4-10.2) mg/dl Troponin I 1.49 H* (0.00-0.02) ng/ml B-Natriuretic Peptide (0-100) pg/ml Med Orders - Current: Current Medications Acetaminophen (Tylenol) 650 mg PO Q4H PRN PRN Reason: Pain (Mild 1-3)/fever Albuterol/Ipratropium (Duoneb 3.0-0.5 Mg/3 Ml) 3 ml NEB Q4HRRT [facility] Last Admin: 06/19/16 13:56 Dose: 3 ml Albuterol/Ipratropium (Duoneb 3.0-0.5 Mg/3 Ml) 3 ml NEB Q2H PRN PRN Reason: Wheezing Aspirin (Halfprin) 81 mg PO DAILY@0800 [facility] Last Admin: 06/19/16 09:35 Dose: 81 mg Atorvastatin Calcium (Lipitor) 80 mg PO BEDTIME [facility] Last Admin: 06/18/16 20:46 Dose: 80 mg Clopidogrel Bisulfate (Plavix) 75 mg PO DAILY [facility] Escitalopram Oxalate (Lexapro) 10 mg PO DAILY@0800 [facility] Last Admin: 06/19/16 09:39 Dose: 10 mg Heparin Sodium/Dextrose (Heparin 25,000 Units In D5w 500 Ml) 25,000 units in 500 mls @ 21.534 mls/hr IV TITRATE LIYA; 15 UNITS/KG/HR PRN Reason: Protocol Levothyroxine Sodium (Synthroid) 50 mcg PO DAILY@06 [facility] Last Admin: 06/19/16 06:21 Dose: Not Given Lidocaine (Lidoderm 5%) 140 mg TRDERM DAILY@2100 [facility] Last Admin: 06/18/16 21:11 Dose: Not Given Metoprolol Tartrate (Lopressor) 75 mg PO BID@799,1999 [facility] Last Admin: 06/19/16 09:35 Dose: 75 mg Miscellaneous Information (Remove Patch) 1 ea TRDERM DAILY@09 [facility] Last Admin: 06/19/16 11:26 Dose: Not Given Morphine Sulfate (Morphine) 1 mg IVPUSH Q4H PRN PRN Reason: Pain (severe 7-10) Ondansetron HCl (Zofran) 4 mg IVPUSH Q6H PRN PRN Reason: Nausea/Vomiting Oxycodone HCl (Oxycodone) 5 mg PO TID@0800,1399,1999 [facility] Last Admin: 06/19/16 15:29 Dose: 5 mg Pantoprazole Sodium (Protonix Iv) 40 mg IVPUSH DAILY [facility] Last Admin: 06/19/16 09:48 Dose: 40 mg Phenytoin Sodium (Dilantin) 60 mg PO DAILY@799 [facility] Last Admin: 06/19/16 09:34 Dose: 60 mg Phenytoin Sodium (Phenytoin) 100 mg PO DAILY@1999 [facility] Last Admin: 06/18/16 20:27 Dose: 100 mg Potassium Chloride (Klor-Con 10) 20 meq PO Q48H [facility] Last Admin: 06/19/16 09:33 Dose: 20 meq Senna/Docusate Sodium (Senna Plus) 1 tab PO BID@799,1999 [facility] Last Admin: 06/19/16 09:36 Dose: 1 tab Sodium Chloride (Saline Flush) 10 ml FLUSH ASDIRECTED PRN PRN Reason: Keep Vein Open Last Admin: 06/19/16 09:46 Dose: 10 ml Discontinued Medications Albuterol/Ipratropium (Duoneb 3.0-0.5 Mg/3 Ml) 3 ml NEB ONETIME ONE Stop: 06/18/16 13:31 Last Admin: 06/18/16 13:45 Dose: 3 ml Amlodipine Besylate (Norvasc) 10 mg PO DAILY@0800 [facility] Clopidogrel Bisulfate (Plavix) 300 mg PO ONETIME ONE Stop: 06/19/16 06:47 Last Admin: 06/19/16 09:32 Dose: 300 mg Clopidogrel Bisulfate (Plavix) 300 mg PO ONETIME ONE Stop: 06/19/16 09:31 Last Admin: 06/19/16 11:40 Dose: Not Given Furosemide (Lasix) Confirm Administered Dose 80 mg .ROUTE .STK-MED ONE Stop: 06/18/16 13:24 Last Admin: 06/18/16 14:56 Dose: Not Given Furosemide (Lasix) 80 mg IVPUSH NOW ONE Stop: 06/18/16 13:26 Last Admin: 06/18/16 13:25 Dose: 80 mg Heparin Sodium (Porcine) (Heparin Sodium) 5,000 units IV ONETIME ONE Stop: 06/18/16 23:31 Last Admin: 06/19/16 00:23 Dose: Not Given Heparin Sodium (Porcine) (Heparin Sodium) 2,900 units IV Q6H PRN PRN Reason: IV Use Heparin Sodium (Porcine) (Heparin Sodium) 2,100 units IV Q6H PRN PRN Reason: IV Use Piperacillin Sod/Tazobactam (Sod 3.375 gm/ Sodium Chloride) 100 mls @ 200 mls/ hr IV ONETIME ONE Stop: 06/18/16 13:59 Last Admin: 06/18/16 13:45 Dose: 200 mls/hr Sodium Chloride (Normal Saline) 1,000 mls @ 150 mls/hr IV ASDIRECTED LIYA Last Admin: 06/18/16 14:29 Dose: 150 mls/hr Sodium Chloride (Normal Saline) 1,000 mls @ 75 mls/hr IV ASDIRECTED LIYA Stop: 06/18/16 22:31 Heparin Sodium/Dextrose (Heparin 25,000 Units In D5w 500 Ml) 25,000 units in 500 mls @ 21.534 mls/hr IV TITRATE LIYA; 15 UNITS/KG/HR PRN Reason: Protocol Last Titration: 06/19/16 12:55 Dose: 0 units/kg/hr, 0 mls/hr Pantoprazole Sodium (Protonix) 40 mg PO ACBREAKFAST [facility]YA Last Admin: 06/19/16 06:21 Dose: Not Given - Exam Quality Assessment: supplemental oxygen General: alert, oriented, cooperative Lungs: Normal respiratory effort, Decreased breath sounds, Crackles Cardiovascular: regular rate, regular rhythm, murmurs Abdomen: bowel sounds present, soft, no tenderness Extremities: no edema Skin: warm, dry Neurological: normal speech Psy/Mental Status: alert, normal affect - Problem List & Annotations (1) NSTEMI (non-ST elevated myocardial infarction) SNOMED Code(s): 13288652 Code(s): I21.4 - NON-ST ELEVATION (NSTEMI) MYOCARDIAL INFARCTION Status: Acute Priority: High Current Visit: Yes (2) Aspiration pneumonitis SNOMED Code(s): 127306716 Code(s): J69.0 - PNEUMONITIS DUE TO INHALATION OF FOOD AND VOMIT Status: Acute Priority: High Current Visit: Yes (3) Respiratory failure SNOMED Code(s): 769710591 Code(s): J96.90 - RESPIRATORY FAILURE, UNSP, UNSP W HYPOXIA OR HYPERCAPNIA Status: Acute Priority: High Current Visit: Yes Qualifiers: Chronicity: acute Respiratory failure complication: unspecified whether with hypoxia or hypercapnia Qualified Code(s): J96.00 - Acute respiratory failure, unspecified whether with hypoxia or hypercapnia - Problem List Review Problem List Initiated/Reviewed/Updated: Yes - My Orders Last 24 Hours: My Active Orders 06/18/16 15:32 Patient Status [ADT] Routine Oxygen Therapy [RC] PRN Up With Assistance [RC] ASDIRECTED VTE/DVT Education [RC] PER UNIT ROUTINE Vital Signs [RC] Q4H Acetaminophen [Tylenol] 650 mg PO Q4H PRN Ondansetron [Zofran] 4 mg IVPUSH Q6H PRN Resuscitation Status Routine 06/18/16 15:36 Cardiac Monitoring [RC] CONTINUOUS Intake and Output [RC] QSHIFT 06/18/16 15:38 Pulse Oximetry [RC] PRN 06/18/16 16:16 Respiratory Care Assess and Treatment [CONS] Routine 06/18/16 17:01 RT Aerosol Therapy [RC] ASDIRECTED Albuterol/Ipratropium [DuoNeb 3.0-0.5 MG/3 ML] 3 ml NEB Q2H PRN 06/18/16 19:00 Albuterol/Ipratropium [DuoNeb 3.0-0.5 MG/3 ML] 3 ml NEB Q4HRRT 06/18/16 20:00 Docusate Sodium/Sennosides [Senna Plus] 1 tab PO BID@08,1999 Metoprolol Tartrate [Lopressor] 75 mg PO BID@799,1999 Phenytoin 100 mg PO DAILY@1999 oxyCODONE 5 mg PO TID@0800,1400,199906/18/16 21:00 Lidocaine 5% [Lidoderm 5%] 140 mg TRDERM DAILY@2099 atorvaSTATin [Lipitor] 80 mg PO BEDTIME 06/18/16 Dinner Mechanical Soft Diet [DIET] 06/19/16 06:00 Levothyroxine [Synthroid] 50 mcg PO DAILY@0600 06/19/16 06:48 Communication Order [RC] ROUTINE 06/19/16 06:49 EKG 12 Lead [EKG Documentation Completion] [RC] ROUTINE 06/19/16 07:12 Echo Comp wo Cont [US] Routine 06/19/16 07:39 Morphine 1 mg IVPUSH Q4H PRN 06/19/16 08:00 Aspirin [Halfprin] 81 mg PO DAILY@0800 Escitalopram [Lexapro] 10 mg PO DAILY@0800 Phenytoin [Dilantin] 60 mg PO DAILY@0800 Potassium Chloride [Klor-Con 10] 20 meq PO Q48H 06/19/16 09:00 Pantoprazole [Protonix IV] 40 mg IVPUSH DAILY Remove Patch 1 ea TRDERM DAILY@0900 06/19/16 15:45 Heparin Sodium/D5W [Heparin 25,000 Units in D5W 500 ML] 25,000 units in 500 ml IV TITRATE 06/19/16 16:12 PTT,PARTIAL THROMBOPLSTIN TIME [COAG] Stat 06/19/16 18:00 BASIC METABOLIC PANEL,BMP [CHEM] Routine PTT,PARTIAL THROMBOPLSTIN TIME [COAG] Q6H 06/20/16 00:00 PTT,PARTIAL THROMBOPLSTIN TIME [COAG] Q6H 06/20/16 06:00 BASIC METABOLIC PANEL,BMP [CHEM] Routine CBC WITH AUTO DIFF [HEME] Routine PTT,PARTIAL THROMBOPLSTIN TIME [COAG] Q6H 06/20/16 09:00 Clopidogrel [Plavix] 75 mg PO DAILY 06/20/16 12:00 PTT,PARTIAL THROMBOPLSTIN TIME [COAG] Q6H 06/20/16 18:00 PTT,PARTIAL THROMBOPLSTIN TIME [COAG] Q6H 06/21/16 00:00 PTT,PARTIAL THROMBOPLSTIN TIME [COAG] Q6H - Plan Plan:: acute hypoxic respiratory failure - due to probable aspriation pneumonitis -unwitness event- DDX- aspiration on mucus most likely given recent clinical history, perhaps a mucus plug, also consider, cardiac event- has elevated trops , or seizure -has h/o seizure and dilantin level is low. less likely CVA event -sats of 84% on RA -pt placed on bipap overnight; this am -sats stable in high 90- placed on 5 liters NC - and currently satting in mid 90s -ABG 7.3/ - on bipap upon -now sats mid 90s on biapa- 40% - -CXR on admit was clear- repeat CXR this am still clear -cotn to wean oxygen as able -cont zosyn started 06/18/16 - given possible early PNA or risk of developing aspiration PNA in next 7-10 days -given age and comorbities -will schedule nebs for next 24 hours and PRN NSTEMI -elevated top at 0.08 at admit- initially thought likely to strain from event however repeat trop significantly elevated at 2.8 - hep drip started and plavix -no prior diz- risk factors- age, HTN, HLD, h/o carotid dz -repeat EKG this am- still no St changes- she did invert her t waves in V1-v3. -no cardiac history; no recent c/o CP, SHULTZ< edema, or orthopnea - d/w daughter- no aggressive measure but full med management -cont ASA, statin, BB -d/c amlodipine to have room for ISABELLA -consider starting low dose ISABELLA in am if pressures acceptable - too low this am -cont to follow trops until trending down -PRN IV morphine for pain -increase in BNP from 255 to 586 - indicates poorer prognosis h/o Seizures - low dilantin level- looks like last level was low too- in 8 range as well - today 8.4 -has abscense seizures - but none for years -cont current doses - has h/o dilantin toxicity Hyponatremia -chronic levels in mid/high 120s=- so just below her baseline -due to her dilantin -cont fluid restriction- 1500 cc -cont to follow - chronic diagnosis- hypothyroid, depression, h/o carotid dz, HTN, osteoporosis, obesity- BMI 32- HDL - stable cont home meds hep DVT PPX IV PPI for GI PPX - is on PO at baseline so 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
[2016-06-19] MEDS: Sodium Chloride 0.9% 1,000 ML IV SCH (17:57)
[2016-06-19] MEDS ORDERED: Heparin Sodium 5,000 Units/ML Vial IV ONE (18:15)
[2016-06-19] MEDS: Phenytoin 100 MG Cap.ER PO SCH (20:28)
[2016-06-19] MEDS: atorvaSTATin 20 MG Tab PO SCH (20:29)
[2016-06-19] MEDS: Lidocaine 5% 700 MG Patch TRDERM SCH (20:29)
--- NOTE | 2016-06-19 21:18 | EKG ---
06/19/2016 - FAITH DURANT - TIME: 0800 hours. EKG shows normal sinus rhythm at a rate of 79 beats per minute. There is a premature atrial complex. Prolonged QTc with 496 milliseconds. The patient has inverted T-waves in leads V1, V2, and V3 with flattened T-waves in V4, V5, and V6. [facility] /[id number]
--- NOTE | 2016-06-19 22:38 | EKG ---
06/18/2016 - FAITH DURANT - TIME: 1355 hours. EKG shows sinus rhythm at 91 beats per minute with premature atrial complex. [facility] /[id number]
[2016-06-20] MEDS: Albuterol/Ipratropium 3.0-0.5 MG/3 ML Neb Soln NEB SCH ×6 (03:46→23:10)
[2016-06-20] MEDS: Levothyroxine 50 MCG Tab PO SCH (05:52)
[2016-06-20] MEDS: Sodium Chloride 0.9% 1,000 ML IV SCH (07:31)
[2016-06-20] MEDS: Aspirin 81 MG Tab.EC PO SCH (09:17)
[2016-06-20] MEDS: Metoprolol Tartrate 25 MG Tab PO SCH ×3 (09:17→20:11)
[2016-06-20] MEDS: oxyCODONE 5 MG Tab PO SCH ×3 (09:18→20:12)
[2016-06-20] MEDS: Phenytoin 30 MG Cap.ER PO SCH (09:19)
[2016-06-20] MEDS: Clopidogrel 75 MG Tab PO SCH (09:20)
[2016-06-20] MEDS: Escitalopram 10 MG Tab PO SCH (09:20)
[2016-06-20] MEDS: Pantoprazole 40 MG Vial IVPUSH SCH (09:33)
[2016-06-20] MEDS: Sodium Chloride 0.9% 10 ML Syringe FLUSH PRN ×2 (09:34→21:00)
--- NOTE | 2016-06-20 10:19 | PCM.PN ---
- General Info Date of Service: 06/20/16 Admission Dx/Problem (Free Text): Magalis is a 85 y/o resident in local SNF who presents in acute hypoxic respiratory failure. Per correction staff the pt had been noted to have cough and congestion for past several days but no f/c and otherwise at her baseline (in fact were considering transfer to assisted living soon) . today staff heard gasping,choking and wheezing, they rushed to find Mgaalis in acute respiratory distress. They presumed she had aspirated and tried to suction her. Despite their interventions she remained hypoxic with sats in the mid 80s. PT was transported to EOD for evaluation. PT placed on BiPAP with oxygen and sats increased to mid 90s. Lungs initially sounded wet and rhonchus so dose of lasix was given; however, subsequent CXR did not reveal any pulm edema, effusions or obvious infilatrative process. WBC mildly elevated at 12; dilantin level low at 8.4. pt also noted to have sodium of 123 - which is actually near her baseline. Troponin was mildly elevated at 0.08 however family does not want any aggressive w/u or treatment for cardiac events. PT is DNR/DNI. Family declines transfer to higher level of care for aggressive treatments. Subjective Update: pt did well overnight; she is awake and orientated this am. she says she is feeling well, She denies any current pain. She has no new c/o SOB and a cough . no n/v. no [place]. no dizziness, no CP. has been on heparin drip - difficult to dose with no exact ptt numbers from lab Functional Status: Reports: pain controlled, tolerating diet - Review of Systems General: Reports: weakness. Denies: fever Pulmonary: Reports: shortness of breath Cardiovascular: Denies: chest pain Gastrointestinal: Denies: Abdominal pain Genitourinary: Denies: dysuria Musculoskeletal: Denies: neck pain Neurological: Reports: confusion (on/off) - Patient Data Vitals - most recent: Last Vital Signs Temp 36.8 C 06/20/16 07:30 Pulse 91 06/20/16 09:17 Resp 18 06/20/16 07:30 BP 114/60 06/20/16 09:17 Pulse Ox 99 06/20/16 07:30 Weight - most recent: 71.781 kg I&O - last 24 hours: Intake & Output 06/19/16 06/20/16 06/20/16 22:59 06:59 14:59 Intake Total 100 75 200 Output Total 125 Balance 100 -50 200 Lab Results last 24 hrs: Laboratory Results - last 24 hr 06/19/16 06/19/16 06/19/16 Range/Units 11:52 11:52 17:08 WBC (5.0-10.0) 10^3/uL RBC (4.2-5.4) 10^6/uL Hgb (12.0-16.0) g/dL Hct (37.0-47.0) % MCV (80-100) fL MCH (27.0-34.0) pg MCHC (33.0-35.0) g/dL Plt Count (150-450) 10^3/uL Neut % (Auto) (42.2-75.2) % Lymph % (Auto) (20.5-50.1) % [place] % (Auto) (2-8) % Eos % (Auto) (1.0-3.0) % Baso % (Auto) (0.0-1.0) % APTT > 120.0 H* 40.2 H (22.0-34.0) SEC Sodium (135-145) mmol/L Potassium (3.6-5.0) mmol/L Chloride (101-111) mmol/L Carbon Dioxide (21.0-31.0) mmol/L Anion Gap BUN (7-18) mg/dL Creatinine (0.6-1.3) mg/dL Est Cr Clr Drug Dosing mL/min Estimated GFR (MDRD) Glucose (74-105) mg/dL Calcium (8.4-10.2) mg/dl Troponin I 1.49 H* (0.00-0.02) ng/ml 06/19/16 06/20/16 06/20/16 Range/Units 19:24 00:15 08:35 WBC 8.3 (5.0-10.0) 10^3/uL RBC 3.95 L (4.2-5.4) 10^6/uL Hgb 11.8 L (12.0-16.0) g/dL Hct 34.1 L (37.0-47.0) % MCV 86.3 (80-100) fL MCH 29.9 (27.0-34.0) pg MCHC 34.6 (33.0-35.0) g/dL Plt Count 178 (150-450) 10^3/uL Neut % (Auto) 77.1 H (42.2-75.2) % Lymph % (Auto) 13.4 L (20.5-50.1) % [place] % (Auto) 9.2 H (2-8) % Eos % (Auto) 0.1 L (1.0-3.0) % Baso % (Auto) 0.2 (0.0-1.0) % APTT > 120.0 H* (22.0-34.0) SEC Sodium 126 L (135-145) mmol/L Potassium 3.9 (3.6-5.0) mmol/L Chloride 91 L (101-111) mmol/L Carbon Dioxide 25.0 (21.0-31.0) mmol/L Anion Gap 13.9 BUN 33 H (7-18) mg/dL Creatinine 1.8 H (0.6-1.3) mg/dL Est Cr Clr Drug Dosing 16.11 mL/min Estimated GFR (MDRD) 27 Glucose 158 H (74-105) mg/dL Calcium 7.4 L (8.4-10.2) mg/dl Troponin I (0.00-0.02) ng/ml 06/20/16 06/20/16 Range/Units 08:35 08:35 WBC (5.0-10.0) 10^3/uL RBC (4.2-5.4) 10^6/uL Hgb (12.0-16.0) g/dL Hct (37.0-47.0) % MCV (80-100) fL MCH (27.0-34.0) pg MCHC (33.0-35.0) g/dL Plt Count (150-450) 10^3/uL Neut % (Auto) (42.2-75.2) % Lymph % (Auto) (20.5-50.1) % [place] % (Auto) (2-8) % Eos % (Auto) (1.0-3.0) % Baso % (Auto) (0.0-1.0) % APTT > 120.0 H* (22.0-34.0) SEC Sodium 126 L (135-145) mmol/L Potassium 3.4 L (3.6-5.0) mmol/L Chloride 93 L (101-111) mmol/L Carbon Dioxide 21.0 (21.0-31.0) mmol/L Anion Gap 15.4 BUN 36 H (7-18) mg/dL Creatinine 1.7 H (0.6-1.3) mg/dL Est Cr Clr Drug Dosing 17.06 mL/min Estimated GFR (MDRD) 28 Glucose 163 H (74-105) mg/dL Calcium 7.1 L (8.4-10.2) mg/dl Troponin I (0.00-0.02) ng/ml Med Orders - Current: Current Medications Acetaminophen (Tylenol) 650 mg PO Q4H PRN PRN Reason: Pain (Mild 1-3)/fever Albuterol/Ipratropium (Duoneb 3.0-0.5 Mg/3 Ml) 3 ml NEB Q4HRRT [facility] Last Admin: 06/20/16 07:35 Dose: 3 ml Albuterol/Ipratropium (Duoneb 3.0-0.5 Mg/3 Ml) 3 ml NEB Q2H PRN PRN Reason: Wheezing Aspirin (Halfprin) 81 mg PO DAILY@0800 [facility] Last Admin: 06/20/16 09:17 Dose: 81 mg Atorvastatin Calcium (Lipitor) 80 mg PO BEDTIME [facility] Last Admin: 06/19/16 20:29 Dose: 80 mg Clopidogrel Bisulfate (Plavix) 75 mg PO DAILY [facility] Last Admin: 06/20/16 09:20 Dose: 75 mg Enoxaparin Sodium (Lovenox) 40 mg SUBCUT ONETIME ONE Stop: 06/20/16 10:05 Escitalopram Oxalate (Lexapro) 10 mg PO DAILY@0800 [facility] Last Admin: 06/20/16 09:20 Dose: 10 mg Heparin Sodium (Porcine) (Heparin Sodium) 5,000 units SUBCUT Q8HR [facility] Sodium Chloride (Normal Saline) 1,000 mls @ 75 mls/hr IV ASDIRECTED [facility] Last Admin: 06/20/16 07:31 Dose: 75 mls/hr Levothyroxine Sodium (Synthroid) 50 mcg PO DAILY@0600 [facility] Last Admin: 06/20/16 05:52 Dose: 50 mcg Lidocaine (Lidoderm 5%) 140 mg TRDERM DAILY@2100 [facility] Last Admin: 06/19/16 20:29 Dose: Not Given Metoprolol Tartrate (Lopressor) 75 mg PO BID@799,1999 [facility] Last Admin: 06/20/16 09:17 Dose: 75 mg Miscellaneous Information (Remove Patch) 1 ea TRDERM DAILY@09 [facility] Last Admin: 06/20/16 09:56 Dose: Not Given Morphine Sulfate (Morphine) 1 mg IVPUSH Q4H PRN PRN Reason: Pain (severe 7-10) Ondansetron HCl (Zofran) 4 mg IVPUSH Q6H PRN PRN Reason: Nausea/Vomiting Oxycodone HCl (Oxycodone) 5 mg PO TID@0800,1400,1999 [facility] Last Admin: 06/20/16 09:18 Dose: 5 mg Pantoprazole Sodium (Protonix Iv) 40 mg IVPUSH DAILY [facility] Last Admin: 06/20/16 09:33 Dose: 40 mg Phenytoin Sodium (Dilantin) 60 mg PO DAILY@08 [facility] Last Admin: 06/20/16 09:19 Dose: 60 mg Phenytoin Sodium (Phenytoin) 100 mg PO DAILY@1999 [facility] Last Admin: 06/19/16 20:28 Dose: 100 mg Potassium Chloride (Klor-Con 10) 20 meq PO Q48H [facility] Last Admin: 06/19/16 09:33 Dose: 20 meq Potassium Chloride (Klor-Con 10) 40 meq PO ONETIME ONE Stop: 06/20/16 10:03 Senna/Docusate Sodium (Senna Plus) 1 tab PO BID@799,1999 [facility] Last Admin: 06/20/16 09:21 Dose: 1 tab Sodium Chloride (Saline Flush) 10 ml FLUSH ASDIRECTED PRN PRN Reason: Keep Vein Open Last Admin: 06/20/16 09:34 Dose: 10 ml Discontinued Medications Albuterol/Ipratropium (Duoneb 3.0-0.5 Mg/3 Ml) 3 ml NEB ONETIME ONE Stop: 06/18/16 13:31 Last Admin: 06/18/16 13:45 Dose: 3 ml Amlodipine Besylate (Norvasc) 10 mg PO DAILY@0800 [facility] Clopidogrel Bisulfate (Plavix) 300 mg PO ONETIME ONE Stop: 06/19/16 06:47 Last Admin: 06/19/16 09:32 Dose: 300 mg Clopidogrel Bisulfate (Plavix) 300 mg PO ONETIME ONE Stop: 06/19/16 09:31 Last Admin: 06/19/16 11:40 Dose: Not Given Furosemide (Lasix) Confirm Administered Dose 80 mg .ROUTE .STK-MED ONE Stop: 06/18/16 13:24 Last Admin: 06/18/16 14:56 Dose: Not Given Furosemide (Lasix) 80 mg IVPUSH NOW ONE Stop: 06/18/16 13:26 Last Admin: 06/18/16 13:25 Dose: 80 mg Heparin Sodium (Porcine) (Heparin Sodium) 5,000 units IV ONETIME ONE Stop: 06/18/16 23:31 Last Admin: 06/19/16 00:23 Dose: Not Given Heparin Sodium (Porcine) (Heparin Sodium) 2,900 units IV Q6H PRN PRN Reason: IV Use Heparin Sodium (Porcine) (Heparin Sodium) 2,100 units IV Q6H PRN PRN Reason: IV Use Heparin Sodium (Porcine) (Heparin Sodium) 4,320 units IV ONETIME ONE Stop: 06/19/16 18:16 Last Admin: 06/19/16 18:39 Dose: 4,320 units Piperacillin Sod/Tazobactam (Sod 3.375 gm/ Sodium Chloride) 100 mls @ 200 mls/ hr IV ONETIME ONE Stop: 06/18/16 13:59 Last Admin: 06/18/16 13:45 Dose: 200 mls/hr Sodium Chloride (Normal Saline) 1,000 mls @ 150 mls/hr IV ASDIRECTED [facility] Last Admin: 06/18/16 14:29 Dose: 150 mls/hr Sodium Chloride (Normal Saline) 1,000 mls @ 75 mls/hr IV ASDIRECTED [facility] Stop: 06/18/16 22:31 Heparin Sodium/Dextrose (Heparin 25,000 Units In D5w 500 Ml) 25,000 units in 500 mls @ 21.534 mls/hr IV TITRATE [facility]; 15 UNITS/KG/HR PRN Reason: Protocol Last Titration: 06/19/16 12:55 Dose: 0 units/kg/hr, 0 mls/hr Heparin Sodium/Dextrose (Heparin 25,000 Units In D5w 500 Ml) 25,000 units in 500 mls @ 21.534 mls/hr IV TITRATE [facility]; 15 UNITS/KG/HR PRN Reason: Protocol Stop: 06/21/16 00:30 Last Titration: 06/20/16 02:25 Dose: 11 units/kg/hr, 15.792 mls/hr Pantoprazole Sodium (Protonix) 40 mg PO ACBREAKFAST [facility] Last Admin: 06/19/16 06:21 Dose: Not Given - Exam Quality Assessment: supplemental oxygen General: alert, oriented Neck: supple Lungs: Rhonchi, Wheezing Cardiovascular: regular rate Abdomen: bowel sounds present, soft, no tenderness Back Exam: normal inspection Extremities: no edema Skin: warm, dry Neurological: no new focal deficit Psy/Mental Status: alert, normal affect, normal mood - Problem List & Annotations (1) Aspiration pneumonitis SNOMED Code(s): 631116280 Code(s): J69.0 - PNEUMONITIS DUE TO INHALATION OF FOOD AND VOMIT Status: Acute Priority: High Current Visit: Yes (2) NSTEMI (non-ST elevated myocardial infarction) SNOMED Code(s): 37807198 Code(s): I21.4 - NON-ST ELEVATION (NSTEMI) MYOCARDIAL INFARCTION Status: Acute Priority: High Current Visit: Yes - Problem List Review Problem List Initiated/Reviewed/Updated: Yes - My Orders Last 24 Hours: My Active Orders 06/20/16 10:02 Potassium Chloride [Klor-Con 10] 40 meq PO ONETIME ONE 06/20/16 10:04 Enoxaparin [Lovenox] 40 mg SUBCUT ONETIME ONE 06/20/16 20:00 Heparin Sodium 5,000 units SUBCUT Q8HR 06/21/16 05:15 BASIC METABOLIC PANEL,BMP [CHEM] AM CBC WITH AUTO DIFF [HEME] AM - Plan Plan:: acute hypoxic respiratory failure - due to probable aspriation pneumonitis -unwitness event- DDX- aspiration on mucus most likely given recent clinical history, perhaps a mucus plug, also consider, cardiac event- has elevated trops , or seizure -has h/o seizure and dilantin level is low. less likely CVA event -sats of 84% on RA -pt placed on bipap on admission; -CXR on admit was clear- repeat CXR was still clear -cont to wean oxygen as able -cont zosyn started 06/18/16 - given possible early PNA or risk of developing aspiration PNA in next 7-10 days -given age and comorbities -will cont nebs NSTEMI - hep drip started and plavix bolus - will switch heparin wght based nomorgram to one dose of lovenox - then stop - tx. with asa, plavix - tx with ASA, statin, BB h/o Seizures - low dilantin level- looks like last level was low too- in 8 range as well - today 8.4 -has abscense seizures - but none for years -cont current doses - has h/o dilantin toxicity Hyponatremia -chronic levels in mid/high 120s=- so just below her baseline -due to her dilantin -cont fluid restriction- 1500 cc -cont to follow - chronic diagnosis- hypothyroid, depression, h/o carotid dz, HTN, osteoporosis, obesity- BMI 32- HDL - stable cont home meds hep sq for DVT PPX when off lovenox/heparin drip DNR/DNI per d/w daughter. d/w dr. Aquino
[2016-06-20] MEDS ORDERED: Enoxaparin 30 MG/0.3 ML Syringe SUBCUT ONE ×2 (10:37→13:15)
[2016-06-20] MEDS ORDERED: Potassium Chloride 10 MEQ Tab.ER PO ONE (10:39)
[2016-06-20] MEDS: atorvaSTATin 20 MG Tab PO SCH (20:14)
[2016-06-20] MEDS: Phenytoin 100 MG Cap.ER PO SCH (20:14)
[2016-06-20] MEDS ORDERED: Lidocaine 5% 700 MG Patch TOP PRN (21:07)
[2016-06-20] MEDS: Lidocaine 5% 700 MG Patch TOP SCH (22:11)
[2016-06-20] MEDS: Heparin Sodium 5,000 Units/ML Vial SUBCUT SCH (22:20)
[2016-06-20] MEDS: Lidocaine 5% 700 MG Patch TRDERM SCH (22:27)
[2016-06-21] MEDS: Albuterol/Ipratropium 3.0-0.5 MG/3 ML Neb Soln NEB SCH ×5 (03:21→18:13)
[2016-06-21] MEDS: Heparin Sodium 5,000 Units/ML Vial SUBCUT SCH ×3 (06:30→21:49)
[2016-06-21] MEDS: Pantoprazole 40 MG Tab.CR PO SCH (06:30)
[2016-06-21] MEDS: Levothyroxine 50 MCG Tab PO SCH (06:33)
[2016-06-21] MEDS: Metoprolol Tartrate 25 MG Tab PO SCH ×2 (08:16→21:30)
[2016-06-21] MEDS: Clopidogrel 75 MG Tab PO SCH (08:16)
[2016-06-21] MEDS: oxyCODONE 5 MG Tab PO SCH ×3 (08:18→21:38)
[2016-06-21] MEDS: Aspirin 81 MG Tab.EC PO SCH (08:19)
[2016-06-21] MEDS: Phenytoin 30 MG Cap.ER PO SCH (08:19)
[2016-06-21] MEDS: Escitalopram 10 MG Tab PO SCH (08:20)
--- NOTE | 2016-06-21 11:11 | PCM.PN ---
- General Info Date of Service: 06/21/16 Admission Dx/Problem (Free Text): Magalis is a 85 y/o resident in local SNF who presents in acute hypoxic respiratory failure. Per skilled nursing staff the pt had been noted to have cough and congestion for past several days but no f/c and otherwise at her baseline (in fact were considering transfer to assisted living soon) . On the day of admission staff heard gasping,choking and wheezing, they rushed to find Magalis in acute respiratory distress. They presumed she had aspirated and tried to suction her. Despite their interventions she remained hypoxic with sats in the mid 80s. PT was transported to EOD for evaluation. PT placed on BiPAP with oxygen and sats increased to mid 90s. Lungs initially sounded wet and rhonchus so dose of lasix was given; however, subsequent CXR did not reveal any pulm edema, effusions or obvious infilatrative process. WBC mildly elevated at 12; dilantin level low at 8.4. pt also noted to have sodium of 123 - which is actually near her baseline. Troponin was mildly elevated at 0.08 however family does not want any aggressive w/u or treatment for cardiac events. PT is DNR/DNI. Family declines transfer to higher level of care for aggressive treatments. Subjective Update: pt did well overnight; she is awake and orientated this am. she says she is feeling well, She denies any current pain. She has a cough . no n/v. no [place]. no dizziness, no CP. no abd pain, tele showed no significant arrythmia Functional Status: Reports: pain controlled - Review of Systems General: Reports: weakness. Denies: fever Pulmonary: Reports: shortness of breath, cough Cardiovascular: Denies: chest pain Gastrointestinal: Denies: Abdominal pain - Patient Data Vitals - most recent: Last Vital Signs Temp 37.1 C 06/21/16 07:46 Pulse 89 06/21/16 08:16 Resp 20 06/21/16 07:46 BP 131/55 L 06/21/16 08:16 Pulse Ox 99 06/21/16 07:46 Weight - most recent: 71.781 kg I&O - last 24 hours: Intake & Output 06/20/16 06/21/16 06/21/16 22:59 06:59 14:59 Intake Total 300 Output Total 225 225 Balance -225 75 Lab Results last 24 hrs: Laboratory Results - last 24 hr 06/21/16 06/21/16 Range/Units 05:55 05:55 WBC 4.3 L (5.0-10.0) 10^3/uL RBC 3.67 L (4.2-5.4) 10^6/uL Hgb 11.1 L (12.0-16.0) g/dL Hct 32.0 L (37.0-47.0) % MCV 87.2 (80-100) fL MCH 30.2 (27.0-34.0) pg MCHC 34.7 (33.0-35.0) g/dL Plt Count 178 (150-450) 10^3/uL Neut % (Auto) 67.0 (42.2-75.2) % Lymph % (Auto) 17.8 L (20.5-50.1) % [place] % (Auto) 14.1 H (2-8) % Eos % (Auto) 0.9 L (1.0-3.0) % Baso % (Auto) 0.2 (0.0-1.0) % Sodium 128 L (135-145) mmol/L Potassium 3.9 (3.6-5.0) mmol/L Chloride 96 L (101-111) mmol/L Carbon Dioxide 23.0 (21.0-31.0) mmol/L Anion Gap 12.9 BUN 37 H (7-18) mg/dL Creatinine 1.6 H (0.6-1.3) mg/dL Est Cr Clr Drug Dosing 18.13 mL/min Estimated GFR (MDRD) 31 Glucose 106 H (74-105) mg/dL Calcium 7.1 L (8.4-10.2) mg/dl Med Orders - Current: Current Medications Acetaminophen (Tylenol) 650 mg PO Q4H PRN PRN Reason: Pain (Mild 1-3)/fever Last Admin: 06/20/16 16:21 Dose: 650 mg Albuterol/Ipratropium (Duoneb 3.0-0.5 Mg/3 Ml) 3 ml NEB Q4HRRT [facility] Last Admin: 06/21/16 07:39 Dose: 3 ml Albuterol/Ipratropium (Duoneb 3.0-0.5 Mg/3 Ml) 3 ml NEB Q2H PRN PRN Reason: Wheezing Aspirin (Halfprin) 81 mg PO DAILY@0800 [facility] Last Admin: 06/21/16 08:19 Dose: 81 mg Atorvastatin Calcium (Lipitor) 80 mg PO BEDTIME [facility] Last Admin: 06/20/16 20:14 Dose: 80 mg Clopidogrel Bisulfate (Plavix) 75 mg PO DAILY [facility] Last Admin: 06/21/16 08:16 Dose: 75 mg Escitalopram Oxalate (Lexapro) 10 mg PO DAILY@0800 [facility] Last Admin: 06/21/16 08:20 Dose: 10 mg Heparin Sodium (Porcine) (Heparin Sodium) 5,000 units SUBCUT Q8HR [facility] Last Admin: 06/21/16 06:30 Dose: 5,000 units Levothyroxine Sodium (Synthroid) 50 mcg PO DAILY@06 [facility] Last Admin: 06/21/16 06:33 Dose: 50 mcg Lidocaine (Lidoderm 5%) 700 mg TOP BEDTIME [facility] Last Admin: 06/20/16 22:11 Dose: 700 mg Metoprolol Tartrate (Lopressor) 25 mg PO BID@ [facility] Last Admin: 06/21/16 08:16 Dose: 25 mg Miscellaneous Information (Remove Patch) 1 ea TRDERM DAILY@09 [facility] Last Admin: 06/21/16 08:22 Dose: Not Given Morphine Sulfate (Morphine) 1 mg IVPUSH Q4H PRN PRN Reason: Pain (severe 7-10) Ondansetron HCl (Zofran) 4 mg IVPUSH Q6H PRN PRN Reason: Nausea/Vomiting Oxycodone HCl (Oxycodone) 5 mg PO TID@0800,1399,1999 [facility] Last Admin: 06/21/16 08:18 Dose: 5 mg Pantoprazole Sodium (Protonix) 40 mg PO ACBREAKFAST [facility] Last Admin: 06/21/16 06:30 Dose: 40 mg Phenytoin Sodium (Dilantin) 60 mg PO DAILY@799 [facility] Last Admin: 06/21/16 08:19 Dose: 60 mg Phenytoin Sodium (Phenytoin) 100 mg PO DAILY@1999 [facility] Last Admin: 06/20/16 20:14 Dose: 100 mg Senna/Docusate Sodium (Senna Plus) 1 tab PO BID@ [facility] Last Admin: 06/21/16 08:19 Dose: 1 tab Sodium Chloride (Saline Flush) 10 ml FLUSH ASDIRECTED PRN PRN Reason: Keep Vein Open Last Admin: 06/20/16 21:00 Dose: 10 ml Discontinued Medications Albuterol/Ipratropium (Duoneb 3.0-0.5 Mg/3 Ml) 3 ml NEB ONETIME ONE Stop: 06/18/16 13:31 Last Admin: 06/18/16 13:45 Dose: 3 ml Amlodipine Besylate (Norvasc) 10 mg PO DAILY@0800 [facility] Clopidogrel Bisulfate (Plavix) 300 mg PO ONETIME ONE Stop: 06/19/16 06:47 Last Admin: 06/19/16 09:32 Dose: 300 mg Clopidogrel Bisulfate (Plavix) 300 mg PO ONETIME ONE Stop: 06/19/16 09:31 Last Admin: 06/19/16 11:40 Dose: Not Given Enoxaparin Sodium (Lovenox) 30 mg SUBCUT ONETIME ONE Stop: 06/20/16 13:16 Last Admin: 06/20/16 13:22 Dose: 30 mg Furosemide (Lasix) Confirm Administered Dose 80 mg .ROUTE .STK-MED ONE Stop: 06/18/16 13:24 Last Admin: 06/18/16 14:56 Dose: Not Given Furosemide (Lasix) 80 mg IVPUSH NOW ONE Stop: 06/18/16 13:26 Last Admin: 06/18/16 13:25 Dose: 80 mg Heparin Sodium (Porcine) (Heparin Sodium) 5,000 units IV ONETIME ONE Stop: 06/18/16 23:31 Last Admin: 06/19/16 00:23 Dose: Not Given Heparin Sodium (Porcine) (Heparin Sodium) 2,900 units IV Q6H PRN PRN Reason: IV Use Heparin Sodium (Porcine) (Heparin Sodium) 2,100 units IV Q6H PRN PRN Reason: IV Use Heparin Sodium (Porcine) (Heparin Sodium) 4,320 units IV ONETIME ONE Stop: 06/19/16 18:16 Last Admin: 06/19/16 18:39 Dose: 4,320 units Piperacillin Sod/Tazobactam (Sod 3.375 gm/ Sodium Chloride) 100 mls @ 200 mls/ hr IV ONETIME ONE Stop: 06/18/16 13:59 Last Admin: 06/18/16 13:45 Dose: 200 mls/hr Sodium Chloride (Normal Saline) 1,000 mls @ 150 mls/hr IV ASDIRECTED [facility] Last Admin: 06/18/16 14:29 Dose: 150 mls/hr Sodium Chloride (Normal Saline) 1,000 mls @ 75 mls/hr IV ASDIRECTED [facility] Stop: 06/18/16 22:31 Heparin Sodium/Dextrose (Heparin 25,000 Units In D5w 500 Ml) 25,000 units in 500 mls @ 21.534 mls/hr IV TITRATE [facility]; 15 UNITS/KG/HR PRN Reason: Protocol Last Titration: 06/19/16 12:55 Dose: 0 units/kg/hr, 0 mls/hr Heparin Sodium/Dextrose (Heparin 25,000 Units In D5w 500 Ml) 25,000 units in 500 mls @ 21.534 mls/hr IV TITRATE [facility]; 15 UNITS/KG/HR PRN Reason: Protocol Stop: 06/21/16 00:30 Last Titration: 06/20/16 02:25 Dose: 11 units/kg/hr, 15.792 mls/hr Sodium Chloride (Normal Saline) 1,000 mls @ 75 mls/hr IV ASDIRECTED [facility] Last Admin: 06/20/16 07:31 Dose: 75 mls/hr Lidocaine (Lidoderm 5%) 140 mg TRDERM DAILY@2100 [facility] Last Admin: 06/20/16 22:27 Dose: Not Given Metoprolol Tartrate (Lopressor) 75 mg PO BID@0800,2000 [facility] Last Admin: 06/20/16 09:17 Dose: 75 mg Pantoprazole Sodium (Protonix) 40 mg PO ACBREAKFAST [facility] Last Admin: 06/19/16 06:21 Dose: Not Given Pantoprazole Sodium (Protonix Iv) 40 mg IVPUSH DAILY [facility] Last Admin: 06/20/16 09:33 Dose: 40 mg Potassium Chloride (Klor-Con 10) 20 meq PO Q48H [facility] Last Admin: 06/19/16 09:33 Dose: 20 meq Potassium Chloride (Klor-Con 10) 40 meq PO ONETIME ONE Stop: 06/20/16 10:40 Last Admin: 06/20/16 13:05 Dose: 40 meq - Exam Quality Assessment: supplemental oxygen General: alert, oriented Neck: supple Lungs: Decreased breath sounds, Rales, Rhonchi Cardiovascular: regular rate, regular rhythm Abdomen: bowel sounds present, soft, no tenderness Extremities: edema - Problem List & Annotations (1) Aspiration pneumonitis SNOMED Code(s): 999053004 Code(s): J69.0 - PNEUMONITIS DUE TO INHALATION OF FOOD AND VOMIT Status: Acute Priority: High Current Visit: Yes (2) NSTEMI (non-ST elevated myocardial infarction) SNOMED Code(s): 52015977 Code(s): I21.4 - NON-ST ELEVATION (NSTEMI) MYOCARDIAL INFARCTION Status: Acute Priority: High Current Visit: Yes - Problem List Review Problem List Initiated/Reviewed/Updated: Yes - My Orders Last 24 Hours: My Active Orders 06/20/16 10:38 Metoprolol Tartrate [Lopressor] 25 mg PO BID@0800,199906/20/16 13:26 Convert IV to Saline Lock [OM.PC] Routine 06/20/16 19:24 URINALYSIS W/MICROSCOPIC [UA W/MICROSCOPIC] [URIN] Routine 06/20/16 21:00 Lidocaine 5% [Lidoderm 5%] 700 mg TOP BEDTIME 06/20/16 22:00 Heparin Sodium 5,000 units SUBCUT Q8HR 06/21/16 06:00 Pantoprazole [Protonix] 40 mg PO ACBREAKFAST 06/21/16 10:49 Discontinue Telemetry Monitoring [Cardiac Monitoring Discontinue] [RC] Click To Edit IS (RT) [RT Incentive Spirometry] [RC] ASDIRECTED 06/22/16 05:15 BASIC METABOLIC PANEL,BMP [CHEM] AM CBC WITH AUTO DIFF [HEME] AM 06/23/16 05:11 B-TYPE NATRIURETIC PEPTIDE,BNP [CHEM] AM - Plan Plan:: acute hypoxic respiratory failure - due to probable aspriation pneumonitis -unwitness event- DDX- aspiration on mucus most likely given recent clinical history, perhaps a mucus plug, also consider, cardiac event- has elevated trops , or seizure -has h/o seizure and dilantin level is low. less likely CVA event -sats of 84% on RA -pt placed on bipap on admission; -CXR on admit was clear- repeat CXR was still clear -cont to wean oxygen as able -cont zosyn started 06/18/16 - given possible early PNA or risk of developing aspiration PNA in next 7-10 days -given age and comorbities -will cont nebs NSTEMI - hep drip started and plavix bolus - now off heparin drip - tx with ASA, plavix, statin, BB - follow BP - consider adding ISABELLA h/o Seizures - low dilantin level- looks like last level was low too- in 8 range as well - today 8.4 -has abscense seizures - but none for years -cont current doses Hyponatremia -chronic levels in mid/high 120s -cont fluid restriction- 1500 cc -cont to follow chronic diagnosis- hypothyroid, depression, h/o carotid dz, HTN, osteoporosis, obesity- BMI 32- HDL - stable cont home meds hep sq for DVT PPX DNR/DNI per d/w daughter.
[2016-06-21] MEDS: Levofloxacin 250 MG Tab PO SCH (18:33)
[2016-06-21] MEDS: Phenytoin 100 MG Cap.ER PO SCH (21:38)
[2016-06-21] MEDS: atorvaSTATin 20 MG Tab PO SCH (21:41)
[2016-06-21] MEDS: Lidocaine 5% 700 MG Patch TOP SCH (21:46)
[2016-06-21] MEDS: Sodium Chloride 0.9% 10 ML Syringe FLUSH PRN (21:52)
[2016-06-22] MEDS: Albuterol/Ipratropium 3.0-0.5 MG/3 ML Neb Soln NEB SCH ×5 (00:39→21:17)
[2016-06-22] MEDS: Pantoprazole 40 MG Tab.CR PO SCH (06:15)
[2016-06-22] MEDS: Heparin Sodium 5,000 Units/ML Vial SUBCUT SCH ×3 (06:16→23:34)
[2016-06-22] MEDS: Levothyroxine 50 MCG Tab PO SCH (06:16)
[2016-06-22] MEDS: Phenytoin 30 MG Cap.ER PO SCH (08:30)
[2016-06-22] MEDS: Escitalopram 10 MG Tab PO SCH (08:31)
[2016-06-22] MEDS: Metoprolol Tartrate 25 MG Tab PO SCH ×2 (08:31→21:15)
[2016-06-22] MEDS: Clopidogrel 75 MG Tab PO SCH (08:31)
[2016-06-22] MEDS: Aspirin 81 MG Tab.EC PO SCH (08:31)
[2016-06-22] MEDS: oxyCODONE 5 MG Tab PO SCH ×3 (08:32→21:15)
--- NOTE | 2016-06-22 10:19 | PCM.PN ---
- General Info Date of Service: 06/22/16 Admission Dx/Problem (Free Text): aMgalis is a 85 y/o resident in local SNF who presents in acute hypoxic respiratory failure. Per fdc staff the pt had been noted to have cough and congestion for past several days but no f/c and otherwise at her baseline (in fact were considering transfer to assisted living soon) . On the day of admission staff heard gasping,choking and wheezing, they rushed to find Magalis in acute respiratory distress. They presumed she had aspirated and tried to suction her. Despite their interventions she remained hypoxic with sats in the mid 80s. PT was transported to EOD for evaluation. PT placed on BiPAP with oxygen and sats increased to mid 90s. Lungs initially sounded wet and rhonchus so dose of lasix was given; however, subsequent CXR did not reveal any pulm edema, effusions or obvious infilatrative process. WBC mildly elevated at 12; dilantin level low at 8.4. pt also noted to have sodium of 123 - which is actually near her baseline. Troponin was mildly elevated at 0.08 however family does not want any aggressive w/u or treatment for cardiac events. PT is DNR/DNI. Family declined transfer to higher level of care for aggressive treatments. Subjective Update: pt did well overnight; she is awake and orientated this am. she says she is feeling well, She denies any current pain. She has a mild cough . no n/v. no [place]. no dizziness, no CP, no abd pain, abnormal UA was noted yesterday started levofloxacin hypertensive overnight - Review of Systems General: Reports: weakness. Denies: fever Pulmonary: Reports: cough, wheezing. Denies: shortness of breath, sputum Cardiovascular: Denies: chest pain Genitourinary: Denies: dysuria Neurological: Denies: confusion - Patient Data Vitals - most recent: Last Vital Signs Temp 37.1 C 06/22/16 09:04 Pulse 74 06/22/16 09:04 Resp 20 06/22/16 09:04 BP 118/68 06/22/16 09:04 Pulse Ox 95 06/22/16 09:04 Weight - most recent: 71.781 kg I&O - last 24 hours: Intake & Output 06/21/16 06/22/16 06/22/16 22:59 06:59 14:59 Intake Total 840 400 Output Total 200 625 Balance 640 -225 Lab Results last 24 hrs: Laboratory Results - last 24 hr 06/21/16 06/22/16 06/22/16 Range/Units 11:05 07:20 07:20 WBC 3.9 L (5.0-10.0) 10^3/uL RBC 3.88 L (4.2-5.4) 10^6/uL Hgb 11.6 L (12.0-16.0) g/dL Hct 33.8 L (37.0-47.0) % MCV 87.1 (80-100) fL MCH 29.9 (27.0-34.0) pg MCHC 34.3 (33.0-35.0) g/dL Plt Count 199 (150-450) 10^3/uL Neut % (Auto) 60.0 (42.2-75.2) % Lymph % (Auto) 20.6 (20.5-50.1) % [place] % (Auto) 17.3 H (2-8) % Eos % (Auto) 1.8 (1.0-3.0) % Baso % (Auto) 0.3 (0.0-1.0) % Sodium 128 L (135-145) mmol/L Potassium 4.1 (3.6-5.0) mmol/L Chloride 97 L (101-111) mmol/L Carbon Dioxide 24.0 (21.0-31.0) mmol/L Anion Gap 11.1 BUN 24 H (7-18) mg/dL Creatinine 1.0 (0.6-1.3) mg/dL Est Cr Clr Drug Dosing 29.01 mL/min Estimated GFR (MDRD) 53 Glucose 95 (74-105) mg/dL Calcium 7.4 L (8.4-10.2) mg/dl Urine Color Yellow (YELLOW) Urine Appearance Cloudy (CLEAR) Urine pH 5.5 (5.0-9.0) Ur Specific [place] 1.020 (1.005-1.030) Urine Protein 100 H (NEGATIVE) Urine Glucose (UA) Negative (NEGATIVE) Urine Ketones Negative (NEGATIVE) Urine Occult Blood Moderate H (NEGATIVE) Urine Nitrite Positive H (NEGATIVE) Urine Bilirubin Negative (NEGATIVE) Urine Urobilinogen 0.2 (0.2-1.0) mg/dL Ur Leukocyte Esterase Small H (NEGATIVE) Urine RBC 20-30 H /HPF Urine WBC 10-20 H (0-5/HPF) /HPF Ur Epithelial Cells Rare /HPF Amorphous Sediment Moderate H (0/HPF) /HPF Urine Bacteria Many H (0-FEW/HPF) /HPF Granular Casts Occasional /LPF Med Orders - Current: Current Medications Acetaminophen (Tylenol) 650 mg PO Q4H PRN PRN Reason: Pain (Mild 1-3)/fever Last Admin: 06/20/16 16:21 Dose: 650 mg Albuterol/Ipratropium (Duoneb 3.0-0.5 Mg/3 Ml) 3 ml NEB Q4HRRT [facility] Last Admin: 06/22/16 07:56 Dose: 3 ml Albuterol/Ipratropium (Duoneb 3.0-0.5 Mg/3 Ml) 3 ml NEB Q2H PRN PRN Reason: Wheezing Aspirin (Halfprin) 81 mg PO DAILY@0800 [facility] Last Admin: 06/22/16 08:31 Dose: 81 mg Atorvastatin Calcium (Lipitor) 80 mg PO BEDTIME [facility] Last Admin: 06/21/16 21:41 Dose: 80 mg Clopidogrel Bisulfate (Plavix) 75 mg PO DAILY [facility] Last Admin: 06/22/16 08:31 Dose: 75 mg Escitalopram Oxalate (Lexapro) 10 mg PO DAILY@0800 [facility] Last Admin: 06/22/16 08:31 Dose: 10 mg Heparin Sodium (Porcine) (Heparin Sodium) 5,000 units SUBCUT Q8HR [facility] Last Admin: 06/22/16 06:16 Dose: 5,000 units Levofloxacin (Levaquin) 250 mg PO Q24H [facility] Last Admin: 06/21/16 18:33 Dose: 250 mg Levothyroxine Sodium (Synthroid) 50 mcg PO DAILY@0600 [facility] Last Admin: 06/22/16 06:16 Dose: 50 mcg Lidocaine (Lidoderm 5%) 700 mg TOP BEDTIME [facility] Last Admin: 06/21/16 21:46 Dose: 700 mg Metoprolol Tartrate (Lopressor) 25 mg PO BID@0800,2000 [facility] Last Admin: 06/22/16 08:31 Dose: 25 mg Miscellaneous Information (Remove Patch) 1 ea TRDERM DAILY@0900 [facility] Last Admin: 06/22/16 08:34 Dose: Not Given Morphine Sulfate (Morphine) 1 mg IVPUSH Q4H PRN PRN Reason: Pain (severe 7-10) Ondansetron HCl (Zofran) 4 mg IVPUSH Q6H PRN PRN Reason: Nausea/Vomiting Oxycodone HCl (Oxycodone) 5 mg PO TID@0800,1400,1999 [facility] Last Admin: 06/22/16 08:32 Dose: 5 mg Pantoprazole Sodium (Protonix) 40 mg PO ACBREAKFAST [facility] Last Admin: 06/22/16 06:15 Dose: 40 mg Phenytoin Sodium (Dilantin) 60 mg PO DAILY@08 [facility] Last Admin: 06/22/16 08:30 Dose: 60 mg Phenytoin Sodium (Phenytoin) 100 mg PO DAILY@1999 [facility] Last Admin: 06/21/16 21:38 Dose: 100 mg Senna/Docusate Sodium (Senna Plus) 1 tab PO BID@0800,1999 [facility] Last Admin: 06/22/16 08:30 Dose: 1 tab Sodium Chloride (Saline Flush) 10 ml FLUSH ASDIRECTED PRN PRN Reason: Keep Vein Open Last Admin: 06/21/16 21:52 Dose: 10 ml Discontinued Medications Albuterol/Ipratropium (Duoneb 3.0-0.5 Mg/3 Ml) 3 ml NEB ONETIME ONE Stop: 06/18/16 13:31 Last Admin: 06/18/16 13:45 Dose: 3 ml Amlodipine Besylate (Norvasc) 10 mg PO DAILY@0800 [facility] Clopidogrel Bisulfate (Plavix) 300 mg PO ONETIME ONE Stop: 06/19/16 06:47 Last Admin: 06/19/16 09:32 Dose: 300 mg Clopidogrel Bisulfate (Plavix) 300 mg PO ONETIME ONE Stop: 06/19/16 09:31 Last Admin: 06/19/16 11:40 Dose: Not Given Enoxaparin Sodium (Lovenox) 30 mg SUBCUT ONETIME ONE Stop: 06/20/16 13:16 Last Admin: 06/20/16 13:22 Dose: 30 mg Furosemide (Lasix) Confirm Administered Dose 80 mg .ROUTE .STK-MED ONE Stop: 06/18/16 13:24 Last Admin: 06/18/16 14:56 Dose: Not Given Furosemide (Lasix) 80 mg IVPUSH NOW ONE Stop: 06/18/16 13:26 Last Admin: 06/18/16 13:25 Dose: 80 mg Heparin Sodium (Porcine) (Heparin Sodium) 5,000 units IV ONETIME ONE Stop: 06/18/16 23:31 Last Admin: 06/19/16 00:23 Dose: Not Given Heparin Sodium (Porcine) (Heparin Sodium) 2,900 units IV Q6H PRN PRN Reason: IV Use Heparin Sodium (Porcine) (Heparin Sodium) 2,100 units IV Q6H PRN PRN Reason: IV Use Heparin Sodium (Porcine) (Heparin Sodium) 4,320 units IV ONETIME ONE Stop: 06/19/16 18:16 Last Admin: 06/19/16 18:39 Dose: 4,320 units Piperacillin Sod/Tazobactam (Sod 3.375 gm/ Sodium Chloride) 100 mls @ 200 mls/ hr IV ONETIME ONE Stop: 06/18/16 13:59 Last Admin: 06/18/16 13:45 Dose: 200 mls/hr Sodium Chloride (Normal Saline) 1,000 mls @ 150 mls/hr IV ASDIRECTED LIYA Last Admin: 06/18/16 14:29 Dose: 150 mls/hr Sodium Chloride (Normal Saline) 1,000 mls @ 75 mls/hr IV ASDIRECTED LIYA Stop: 06/18/16 22:31 Heparin Sodium/Dextrose (Heparin 25,000 Units In D5w 500 Ml) 25,000 units in 500 mls @ 21.534 mls/hr IV TITRATE LIYA; 15 UNITS/KG/HR PRN Reason: Protocol Last Titration: 06/19/16 12:55 Dose: 0 units/kg/hr, 0 mls/hr Heparin Sodium/Dextrose (Heparin 25,000 Units In D5w 500 Ml) 25,000 units in 500 mls @ 21.534 mls/hr IV TITRATE LIYA; 15 UNITS/KG/HR PRN Reason: Protocol Stop: 06/21/16 00:30 Last Titration: 06/20/16 02:25 Dose: 11 units/kg/hr, 15.792 mls/hr Sodium Chloride (Normal Saline) 1,000 mls @ 75 mls/hr IV ASDIRECTED LIYA Last Admin: 06/20/16 07:31 Dose: 75 mls/hr Lidocaine (Lidoderm 5%) 140 mg TRDERM DAILY@2100 [facility] Last Admin: 06/20/16 22:27 Dose: Not Given Metoprolol Tartrate (Lopressor) 75 mg PO BID@0800,2000 [facility] Last Admin: 06/20/16 09:17 Dose: 75 mg Pantoprazole Sodium (Protonix) 40 mg PO ACBREAKFAST [facility] Last Admin: 06/19/16 06:21 Dose: Not Given Pantoprazole Sodium (Protonix Iv) 40 mg IVPUSH DAILY [facility] Last Admin: 06/20/16 09:33 Dose: 40 mg Potassium Chloride (Klor-Con 10) 20 meq PO Q48H [facility] Last Admin: 06/19/16 09:33 Dose: 20 meq Potassium Chloride (Klor-Con 10) 40 meq PO ONETIME ONE Stop: 06/20/16 10:40 Last Admin: 06/20/16 13:05 Dose: 40 meq - Exam Quality Assessment: supplemental oxygen General: alert, oriented Neck: supple Lungs: Decreased breath sounds, Rhonchi, Wheezing Cardiovascular: regular rate, regular rhythm Abdomen: bowel sounds present, soft Back Exam: normal inspection Extremities: no edema Skin: warm Neurological: no new focal deficit Psy/Mental Status: alert, normal affect, normal mood - Problem List & Annotations (1) Aspiration pneumonitis SNOMED Code(s): 221439776 Code(s): J69.0 - PNEUMONITIS DUE TO INHALATION OF FOOD AND VOMIT Status: Acute Priority: High Current Visit: Yes (2) NSTEMI (non-ST elevated myocardial infarction) SNOMED Code(s): 64218777 Code(s): I21.4 - NON-ST ELEVATION (NSTEMI) MYOCARDIAL INFARCTION Status: Acute Priority: High Current Visit: Yes - Problem List Review Problem List Initiated/Reviewed/Updated: Yes - My Orders Last 24 Hours: My Active Orders 06/21/16 10:49 IS (RT) [RT Incentive Spirometry] [RC] ASDIRECTED 06/21/16 18:00 Levofloxacin [Levaquin] 250 mg PO Q24H 06/22/16 10:30 Lisinopril [Prinivil] 10 mg PO DAILY 06/23/16 05:11 B-TYPE NATRIURETIC PEPTIDE,BNP [CHEM] AM 06/23/16 05:15 BASIC METABOLIC PANEL,BMP [CHEM] AM CBC WITH AUTO DIFF [HEME] AM - Plan Plan:: acute hypoxic respiratory failure - due to probable aspriation pneumonitis -unwitness event- DDX- aspiration on mucus most likely given recent clinical history, perhaps a mucus plug, also consider, cardiac event- has elevated trops , or seizure -has h/o seizure and dilantin level is low. less likely CVA event -sats of 84% on RA -pt placed on bipap on admission; -CXR on admit was clear- repeat CXR was still clear -cont to wean oxygen as able -cont zosyn started 06/18/16 - given possible early PNA or risk of developing aspiration PNA in next 7-10 days -given age and comorbities -will start pulmicort, spiriva decrease scheduled duonebs NSTEMI - hep drip started and plavix bolus - now off heparin drip - tx with ASA, plavix, statin, BB HTN uncontrolled start lisinopril Acute renal failure improved follow with ISABELLA starting UTI urine cx: pending started levofloxacin h/o Seizures - low dilantin level- looks like last level was low too- in 8 range as well - today 8.4 -has abscense seizures - but none for years -cont current doses Hyponatremia -chronic levels in mid/high 120s -cont fluid restriction- 1500 cc -cont to follow chronic diagnosis- hypothyroid, depression, h/o carotid dz, osteoporosis, obesity- BMI 32- HDL - stable cont home meds hep sq for DVT PPX DNR/DNI per d/w daughter.
[2016-06-22] MEDS: Budesonide 0.5 MG/2 ML Neb Susp NEB SCH ×2 (11:34→17:29)
[2016-06-22] MEDS: Lisinopril 10 MG Tab PO SCH (11:35)
[2016-06-22] MEDS: Tiotropium Inhaler 18 MCG Inhalation Powder Cap Kit of 5 INH SCH (11:37)
[2016-06-22] MEDS: Levofloxacin 250 MG Tab PO SCH (17:28)
[2016-06-22] MEDS: Phenytoin 100 MG Cap.ER PO SCH (21:15)
[2016-06-22] MEDS: Lidocaine 5% 700 MG Patch TOP SCH (21:18)
[2016-06-22] MEDS: atorvaSTATin 20 MG Tab PO SCH (21:18)
[2016-06-23] MEDS: Pantoprazole 40 MG Tab.CR PO SCH (06:37)
[2016-06-23] MEDS: Levothyroxine 50 MCG Tab PO SCH (06:37)
[2016-06-23] MEDS: Heparin Sodium 5,000 Units/ML Vial SUBCUT SCH (06:38)
[2016-06-23] MEDS: Albuterol/Ipratropium 3.0-0.5 MG/3 ML Neb Soln NEB SCH (07:37)
[2016-06-23] MEDS: Budesonide 0.5 MG/2 ML Neb Susp NEB SCH (07:37)
[2016-06-23] MEDS: Aspirin 81 MG Tab.EC PO SCH (08:32)
[2016-06-23] MEDS: Clopidogrel 75 MG Tab PO SCH (08:32)
[2016-06-23] MEDS: Metoprolol Tartrate 25 MG Tab PO SCH (08:32)
[2016-06-23] MEDS: Lisinopril 10 MG Tab PO SCH (08:33)
[2016-06-23] MEDS: Phenytoin 30 MG Cap.ER PO SCH (08:33)
[2016-06-23] MEDS: oxyCODONE 5 MG Tab PO SCH (08:34)
[2016-06-23] MEDS: Tiotropium Inhaler 18 MCG Inhalation Powder Cap Kit of 5 INH SCH (08:35)
[2016-06-23] MEDS: Escitalopram 10 MG Tab PO SCH (08:41)
[2016-06-23] MEDS ORDERED: Lisinopril 10 MG Tab PO ONE (09:22)
[2016-06-23] MEDS ORDERED: Isosorbide Mononitrate 30 MG Tab.ER PO SCH (09:23)
--- NOTE | 2016-06-23 10:09 | PCM.DCSUM1 ---
Discharge Summary - Hospital Course Free Text/Narrative:: Magalis is a 85 y/o resident in local SNF who presents in acute hypoxic respiratory failure. Per longterm staff the pt had been noted to have cough and congestion for past several days but no f/c and otherwise at her baseline (in fact were considering transfer to assisted living soon) . On the day of admission staff heard gasping,choking and wheezing, they rushed to find Magalis in acute respiratory distress. They presumed she had aspirated and tried to suction her. Despite their interventions she remained hypoxic with sats in the mid 80s. PT was transported to EOD for evaluation. PT placed on BiPAP with oxygen and sats increased to mid 90s. Lungs initially sounded wet and rhonchus so dose of lasix was given; however, subsequent CXR did not reveal any pulm edema, effusions or obvious infilatrative process. WBC mildly elevated at 12; dilantin level low at 8.4. pt also noted to have sodium of 123 - which is actually near her baseline. Troponin was mildly elevated at 0.08 acute hypoxic respiratory failure - due to probable aspriation pneumonitis -unwitness event- DDX- aspiration on mucus most likely given recent clinical history, perhaps a mucus plug, also consider, cardiac event- has elevated trops , or seizure -has h/o seizure and dilantin level is low. less likely CVA event -sats of 84% on RA -pt placed on bipap on admission; -CXR on admit was clear- repeat CXR was still clear -cont to wean oxygen as able - zosyn started 06/18/16 - given possible early PNA or risk of developing aspiration PNA in next 7-10 days -given age and comorbities -treat with pulmicort, spiriva NSTEMI - hep drip started and plavix bolus - now off heparin drip - tx with ASA, plavix, statin, BB, imdur, statin HTN uncontrolled started and increased lisinopril cont BBkather norvasc follow periodically Acute renal failure improved follow with ISABELLA starting UTI urine cx: pending on levofloxacin h/o Seizures - low dilantin level- looks like last level was low too- in 8 range as well - today 8.4 -has abscense seizures - but none for years -cont current doses Hyponatremia -chronic levels in mid/high 120s -cont to follow periodically chronic diagnosis- hypothyroid, depression, h/o carotid dz, osteoporosis, obesity- BMI 32- HDL - stable cont home meds - Discharge Data Discharge Date: 06/23/16 Discharge Disposition: DC/[facility] Condition: Good - Discharge Diagnosis/Problem(s) (1) Aspiration pneumonitis SNOMED Code(s): 585799417 ICD Code: J69.0 - PNEUMONITIS DUE TO INHALATION OF FOOD AND VOMIT Status: Acute Priority: High Current Visit: Yes (2) NSTEMI (non-ST elevated myocardial infarction) SNOMED Code(s): 78543977 ICD Code: I21.4 - NON-ST ELEVATION (NSTEMI) MYOCARDIAL INFARCTION Status: Acute Priority: High Current Visit: Yes - Patient Summary/Data Consults: Consultations 06/18/16 16:16 Respiratory Care Assess and Treatment [CONS] Routine - Patient Instructions Diet: Heart Healthy Diet Activity: As Tolerated - Discharge Plan Prescriptions/Med Rec: Albuterol/Ipratropium [DuoNeb 3.0-0.5 MG/3 ML] 3 ml NEB Q4H PRN #90 neb PRN Reason: sob, wheezing Budesonide [Pulmicort] 0.5 mg NEB BIDRT #60 neb Clopidogrel [Plavix] 75 mg PO DAILY #30 tablet Levofloxacin [IJP: Levofloxacin] 500 mg PO DAILY #7 tab Lisinopril [Prinivil] 20 mg PO DAILY #30 tablet Tiotropium [Spiriva HandiHaler] 18 mcg INH DAILY #30 cap atorvaSTATin [Lipitor] 40 mg PO BEDTIME #30 tablet Home Medications: Home Meds Alendronate [Fosamax] 70 mg PO Q7D@59909/21/13 [History] Aspirin [Ecotrin] [place] 79909/21/13 [History] Calcium Carbonate/Vitamin D3 [Calcium 250+D] 1 each PO 09/21/13 [History] Levothyroxine [Synthroid] [place] [address]/21/13 [History] Metoprolol Tartrate 75 mg PO ,09/21/13 [History] Multivit-Min/FA/Lycopene/Lut [Centrum Silver] 1 [place] 79909/21/13 [History] Phenytoin Sodium Extended [Dilantin] 100 mg PO 199909/21/13 [History] Phenytoin [Dilantin] 60 mg PO 0810/15/14 [History] Acetaminophen [Tylenol] 650 mg PO BID PRN 03/10/16 [History] Escitalopram [Lexapro] 10 mg PO 0800 03/10/16 [History] Menthol/Methyl Salicylate [Icy Hot Cream] 0 gm TOP Q4H PRN #0 tube 04/04/16 [Rx] Pantoprazole [Protonix] 40 mg PO ACBREAKFAST #30 tab.cr 04/04/16 [Rx] Docusate Sodium/Sennosides [Senna Plus] 1 tab PO 08,20 06/18/16 [History] Lidocaine [Lidocaine 5% Paraben-Free] 140 mg TRDERM 2100 06/18/16 [History] Potassium Chloride [Klor-Con 10] 20 meq PO Q48H 06/18/16 [History] amLODIPine [Norvasc] 10 mg PO 0800 06/18/16 [History] oxyCODONE 5 mg PO 08,14,20 06/18/16 [History] Albuterol/Ipratropium [DuoNeb 3.0-0.5 MG/3 ML] 3 ml NEB Q4H PRN #90 neb [Rx] Budesonide [Pulmicort] 0.5 mg NEB BIDRT #60 neb 06/23/16 [Rx] Clopidogrel [Plavix] 75 mg PO DAILY #30 tablet 06/23/16 [Rx] Levofloxacin [IJP: Levofloxacin] 500 mg PO DAILY #7 tab 06/23/16 [Rx] Lisinopril [Prinivil] 20 mg PO DAILY #30 tablet 06/23/16 [Rx] Tiotropium [Spiriva HandiHaler] 18 mcg INH DAILY #30 cap 06/23/16 [Rx] atorvaSTATin [Lipitor] 40 mg PO BEDTIME #30 tablet 06/23/16 [Rx] Referrals: PCP,Unknown [Primary Care Provider] - (in 4-5 days ) - Discharge Summary/Plan Comment DC Time >30 min.: No - General Info Functional Status: Reports: pain controlled - Review of Systems General: Denies: fever Pulmonary: Denies: shortness of breath Cardiovascular: Denies: chest pain Gastrointestinal: Denies: Abdominal pain - Patient Data Vitals - Most Recent: Last Vital Signs Temp 36.7 C 06/23/16 08:15 Pulse 78 06/23/16 08:32 Resp 20 06/23/16 08:15 BP 176/75 H 06/23/16 08:33 Pulse Ox 98 06/23/16 08:15 Weight - Most Recent: 71.781 kg I&O - Last 24 hours: Intake & Output 06/22/16 06/23/16 06/23/16 22:59 06:59 14:59 Intake Total 300 Output Total 200 300 Balance -200 0 Lab Results - Last 24 hrs: Laboratory Results - last 24 hr 06/23/16 06/23/16 Range/Units 06:18 06:18 WBC 4.1 L (5.0-10.0) 10^3/uL RBC 3.91 L (4.2-5.4) 10^6/uL Hgb 11.8 L (12.0-16.0) g/dL Hct 34.0 L (37.0-47.0) % MCV 87.0 (80-100) fL MCH 30.2 (27.0-34.0) pg MCHC 34.7 (33.0-35.0) g/dL Plt Count 226 (150-450) 10^3/uL Neut % (Auto) 59.4 (42.2-75.2) % Lymph % (Auto) 24.8 (20.5-50.1) % [place] % (Auto) 13.9 H (2-8) % Eos % (Auto) 1.7 (1.0-3.0) % Baso % (Auto) 0.2 (0.0-1.0) % Sodium 129 L (135-145) mmol/L Potassium 4.4 (3.6-5.0) mmol/L Chloride 99 L (101-111) mmol/L Carbon Dioxide 21.0 (21.0-31.0) mmol/L Anion Gap 13.4 BUN 20 H (7-18) mg/dL Creatinine 0.9 (0.6-1.3) mg/dL Est Cr Clr Drug Dosing 32.23 mL/min Estimated GFR (MDRD) 59 Glucose 93 (74-105) mg/dL Calcium 7.9 L (8.4-10.2) mg/dl B-Natriuretic Peptide 168 H (0-100) pg/ml Med Orders - Current: Current Medications Acetaminophen (Tylenol) 650 mg PO Q4H PRN PRN Reason: Pain (Mild 1-3)/fever Last Admin: 06/20/16 16:21 Dose: 650 mg Albuterol/Ipratropium (Duoneb 3.0-0.5 Mg/3 Ml) 3 ml NEB Q2H PRN PRN Reason: Wheezing Albuterol/Ipratropium (Duoneb 3.0-0.5 Mg/3 Ml) 3 ml NEB TIDRT [facility] Last Admin: 06/23/16 07:37 Dose: 3 ml Aspirin (Halfprin) 81 mg PO DAILY@0800 [facility] Last Admin: 06/23/16 08:32 Dose: 81 mg Atorvastatin Calcium (Lipitor) 80 mg PO BEDTIME [facility] Last Admin: 06/22/16 21:18 Dose: 80 mg Budesonide (Pulmicort) 0.5 mg NEB BIDRT [facility] Last Admin: 06/23/16 07:37 Dose: 0.5 mg Clopidogrel Bisulfate (Plavix) 75 mg PO DAILY [facility] Last Admin: 06/23/16 08:32 Dose: 75 mg Escitalopram Oxalate (Lexapro) 10 mg PO DAILY@0800 [facility] Last Admin: 06/23/16 08:41 Dose: 10 mg Heparin Sodium (Porcine) (Heparin Sodium) 5,000 units SUBCUT Q8HR [facility] Last Admin: 06/23/16 06:38 Dose: 5,000 units Isosorbide Mononitrate (Imdur) 30 mg PO ACBREAKFAST [facility] Levofloxacin (Levaquin) 250 mg PO Q24H [facility] Last Admin: 06/22/16 17:28 Dose: 250 mg Levothyroxine Sodium (Synthroid) 50 mcg PO DAILY@0600 [facility] Last Admin: 06/23/16 06:37 Dose: 50 mcg Lidocaine (Lidoderm 5%) 700 mg TOP BEDTIME [facility] Last Admin: 06/22/16 21:18 Dose: 700 mg Lisinopril (Prinivil) 20 mg PO DAILY [facility] Metoprolol Tartrate (Lopressor) 25 mg PO BID@0800,2000 [facility] Last Admin: 06/23/16 08:32 Dose: 25 mg Miscellaneous Information (Remove Patch) 1 ea TRDERM DAILY@0900 [facility] Last Admin: 06/23/16 08:48 Dose: 1 ea Morphine Sulfate (Morphine) 1 mg IVPUSH Q4H PRN PRN Reason: Pain (severe 7-10) Ondansetron HCl (Zofran) 4 mg IVPUSH Q6H PRN PRN Reason: Nausea/Vomiting Oxycodone HCl (Oxycodone) 5 mg PO TID@0800,1399,1999 [facility] Last Admin: 06/23/16 08:34 Dose: 5 mg Pantoprazole Sodium (Protonix) 40 mg PO ACBREAKFAST [facility] Last Admin: 06/23/16 06:37 Dose: 40 mg Phenytoin Sodium (Dilantin) 60 mg PO DAILY@799 [facility] Last Admin: 06/23/16 08:33 Dose: 60 mg Phenytoin Sodium (Phenytoin) 100 mg PO DAILY@1999 [facility] Last Admin: 06/22/16 21:15 Dose: 100 mg Senna/Docusate Sodium (Senna Plus) 1 tab PO BID@799,1999 [facility] Last Admin: 06/23/16 08:35 Dose: Not Given Sodium Chloride (Saline Flush) 10 ml FLUSH ASDIRECTED PRN PRN Reason: Keep Vein Open Last Admin: 06/21/16 21:52 Dose: 10 ml Tiotropium [place] (Spiriva Handihaler) 18 mcg INH DAILY [facility] Last Admin: 06/23/16 08:35 Dose: 18 mcg Discontinued Medications Albuterol/Ipratropium (Duoneb 3.0-0.5 Mg/3 Ml) 3 ml NEB ONETIME ONE Stop: 06/18/16 13:31 Last Admin: 06/18/16 13:45 Dose: 3 ml Albuterol/Ipratropium (Duoneb 3.0-0.5 Mg/3 Ml) 3 ml NEB Q4HRRT [facility] Last Admin: 06/22/16 07:56 Dose: 3 ml Amlodipine Besylate (Norvasc) 10 mg PO DAILY@0800 [facility] Clopidogrel Bisulfate (Plavix) 300 mg PO ONETIME ONE Stop: 06/19/16 06:47 Last Admin: 06/19/16 09:32 Dose: 300 mg Clopidogrel Bisulfate (Plavix) 300 mg PO ONETIME ONE Stop: 06/19/16 09:31 Last Admin: 06/19/16 11:40 Dose: Not Given Enoxaparin Sodium (Lovenox) 30 mg SUBCUT ONETIME ONE Stop: 06/20/16 13:16 Last Admin: 06/20/16 13:22 Dose: 30 mg Furosemide (Lasix) Confirm Administered Dose 80 mg .ROUTE .STK-MED ONE Stop: 06/18/16 13:24 Last Admin: 06/18/16 14:56 Dose: Not Given Furosemide (Lasix) 80 mg IVPUSH NOW ONE Stop: 06/18/16 13:26 Last Admin: 06/18/16 13:25 Dose: 80 mg Heparin Sodium (Porcine) (Heparin Sodium) 5,000 units IV ONETIME ONE Stop: 06/18/16 23:31 Last Admin: 06/19/16 00:23 Dose: Not Given Heparin Sodium (Porcine) (Heparin Sodium) 2,900 units IV Q6H PRN PRN Reason: IV Use Heparin Sodium (Porcine) (Heparin Sodium) 2,100 units IV Q6H PRN PRN Reason: IV Use Heparin Sodium (Porcine) (Heparin Sodium) 4,320 units IV ONETIME ONE Stop: 06/19/16 18:16 Last Admin: 06/19/16 18:39 Dose: 4,320 units Piperacillin Sod/Tazobactam (Sod 3.375 gm/ Sodium Chloride) 100 mls @ 200 mls/ hr IV ONETIME ONE Stop: 06/18/16 13:59 Last Admin: 06/18/16 13:45 Dose: 200 mls/hr Sodium Chloride (Normal Saline) 1,000 mls @ 150 mls/hr IV ASDIRECTED LIYA Last Admin: 06/18/16 14:29 Dose: 150 mls/hr Sodium Chloride (Normal Saline) 1,000 mls @ 75 mls/hr IV ASDIRECTED LIYA Stop: 06/18/16 22:31 Heparin Sodium/Dextrose (Heparin 25,000 Units In D5w 500 Ml) 25,000 units in 500 mls @ 21.534 mls/hr IV TITRATE LIYA; 15 UNITS/KG/HR PRN Reason: Protocol Last Titration: 06/19/16 12:55 Dose: 0 units/kg/hr, 0 mls/hr Heparin Sodium/Dextrose (Heparin 25,000 Units In D5w 500 Ml) 25,000 units in 500 mls @ 21.534 mls/hr IV TITRATE LIYA; 15 UNITS/KG/HR PRN Reason: Protocol Stop: 06/21/16 00:30 Last Titration: 06/20/16 02:25 Dose: 11 units/kg/hr, 15.792 mls/hr Sodium Chloride (Normal Saline) 1,000 mls @ 75 mls/hr IV ASDIRECTED [facility] Last Admin: 06/20/16 07:31 Dose: 75 mls/hr Lidocaine (Lidoderm 5%) 140 mg TRDERM DAILY@2100 [facility] Last Admin: 06/20/16 22:27 Dose: Not Given Lisinopril (Prinivil) 10 mg PO DAILY [facility] Last Admin: 06/23/16 08:33 Dose: 10 mg Lisinopril (Prinivil) 10 mg PO ONETIME ONE Stop: 06/23/16 09:23 Metoprolol Tartrate (Lopressor) 75 mg PO BID@0800,2000 [facility] Last Admin: 06/20/16 09:17 Dose: 75 mg Pantoprazole Sodium (Protonix) 40 mg PO ACBREAKFAST [facility] Last Admin: 06/19/16 06:21 Dose: Not Given Pantoprazole Sodium (Protonix Iv) 40 mg IVPUSH DAILY [facility] Last Admin: 06/20/16 09:33 Dose: 40 mg Potassium Chloride (Klor-Con 10) 20 meq PO Q48H [facility] Last Admin: 06/19/16 09:33 Dose: 20 meq Potassium Chloride (Klor-Con 10) 40 meq PO ONETIME ONE Stop: 06/20/16 10:40 Last Admin: 06/20/16 13:05 Dose: 40 meq - Exam General: Reports: alert, oriented Neck: Reports: supple Lungs: Reports: Normal respiratory effort, Decreased breath sounds, Wheezing ( mild) Cardiovascular: Reports: regular rate, regular rhythm Abdomen: Reports: bowel sounds present, soft, no tenderness, other (obese) Extremities: Reports: no edema Skin: Reports: warm, dry Psy/Mental Status: Reports: alert, normal affect, normal mood *Q Meaningful Use (DIS) - VTE *Q VTE Criteria *Q: - Stroke *Q Stroke Criteria *Q: - AMI *Q AMI Criteria *Q:
[2016-06-23 10:40] VITALS: BP 144/62
[2016-06-24] MEDS ORDERED: Lisinopril 20 MG Tab PO SCH (09:00)
== END 2016-06-23 11:00 | DRG 177 ==
LOC: DL.ED 12:45 → UNDOADMOB 15:09 → DL.MS 15:09 → INTOOBSV 15:09 → OBSVTOIN 15:09 → DL.MS 06-21 11:59
PROVIDERS: ADMIT Internal Medicine; ATTEND Internal Medicine
DX: J69.0 Pneumonitis due to inhalation of food and vomit (principal); J18.9 Pneumonia, unspecified organism; I21.4 Non-ST elevation (NSTEMI) myocardial infarction; J96.01 Acute respiratory failure with hypoxia; E87.1 Hypo-osmolality and hyponatremia; I25.10 Atherosclerotic heart disease of native coronary artery without angina pectoris; Z66 Do not resuscitate; Z79.82 Long term (current) use of aspirin; I10 Essential (primary) hypertension; E78.00 Pure hypercholesterolemia, unspecified; M81.0 Age-related osteoporosis without current pathological fracture; F32.9 Major depressive disorder, single episode, unspecified; E03.9 Hypothyroidism, unspecified; G40.909 Epilepsy, unspecified, not intractable, without status epilepticus; E66.9 Obesity, unspecified; R06.2 Wheezing
CPT/HCPCS: 36415; 36600; 51702; 71010; 80053; 80185; 81001; 82550; 82553; 82803; 83605; 83880; 84484; 85025; 87040 ×2; 93005; 93010; 96361; 96365; 96375; 99285 ×2; J1940; J2543; J7030; J7050 ×2; 80048; 84295; 85730; 94010; 94060; 94640; 94660; A9270-GY; C9113; J1644; J1650

== ENCOUNTER 2017-03-07 15:49 | Emergency (ER) | payer MEDICARE, OTHER ==
[2017-03-07 16:01] VITALS: BP 176/70
--- NOTE | 2017-03-07 16:15 | EDM.PDOC ---
ED HPI GENERAL MEDICAL PROBLEM - General Chief Complaint: Upper Extremity Injury/Pain Stated Complaint: FELL ON RT WRIST Time Seen by Provider: 03/07/17 16:10 Source of Information: Reports: Patient History Limitations: Reports: No Limitations - History of Present Illness INITIAL COMMENTS - FREE TEXT/NARRATIVE: 86 yo white female c/o right wrist and forearm pain after fall @ 3:30PM today. Pt. states she lost her balance. No LOC No Head Trauma Onset: Today Onset Date: 03/07/17 Onset Time: 15:30 Duration: Hour(s): Location: Reports: Upper Extremity, Right Quality: Reports: Ache Severity: Moderate Improves with: Reports: Rest Worsens with: Reports: Movement Context: Reports: Trauma (fall) Associated Symptoms: Reports: No Other Symptoms - Related Data Allergies Allergy/AdvReac Type Severity Reaction Status Date / Time atorvastatin calcium Allergy Body Aches Verified 03/07/17 15:58 [From Lipitor] tramadol Allergy Dizziness Verified 03/07/17 15:58 triamterene [Triamterene] Allergy Cannot Verified 03/07/17 15:58 Remember oxycodone HCl [From Percocet] AdvReac Cannot Verified 03/07/17 15:58 Remember Home Meds: Home Meds Alendronate [Fosamax] 70 mg PO Q7D@0609/21/13 [History] Aspirin [Ecotrin] [place] 79909/21/13 [History] Levothyroxine [Synthroid] [place] [address]/21/13 [History] Metoprolol Tartrate 75 mg PO 08,09/21/13 [History] Multivit-Min/FA/Lycopene/Lut [Centrum Silver] 1 [place] 79909/21/13 [History] Phenytoin Sodium Extended [Dilantin] 100 mg PO 199909/21/13 [History] Phenytoin [Dilantin] 60 [place] 79910/15/14 [History] Acetaminophen [Tylenol] 650 mg PO BID PRN 03/10/16 [History] Escitalopram [Lexapro] 10 mg PO 0800 03/10/16 [History] Menthol/Methyl Salicylate [Icy Hot Cream] 0 gm TOP Q4H PRN #0 tube 04/04/16 [Rx] Pantoprazole [ProTONIX] 40 mg PO ACBREAKFAST #30 tab.cr 04/04/16 [Rx] Docusate Sodium/Sennosides [Senna Plus] 1 tab PO 08,20 06/18/16 [History] Lidocaine [Lidocaine 5% Paraben-Free] 140 mg TRDERM 2100 06/18/16 [History] Potassium Chloride [Klor-Con 10] 20 meq PO Q48H 06/18/16 [History] amLODIPine [Norvasc] 10 mg PO 0800 06/18/16 [History] oxyCODONE 2.5 mg PO 08,14,20 06/18/16 [History] Albuterol/Ipratropium [DuoNeb 3.0-0.5 MG/3 ML] 3 ml NEB Q4H PRN #90 neb [Rx] Budesonide [Pulmicort] 0.5 mg NEB BIDRT #60 neb 06/23/16 [Rx] Calcium Carbonate/Vitamin D3 [Calcium 500 + Vit D Caplet] 1 tab PO DAILY [History] Clopidogrel [Plavix] 75 mg PO DAILY #30 tablet 06/23/16 [Rx] Levofloxacin [IJP: Levofloxacin] 500 mg PO DAILY #7 tab 06/23/16 [Rx] Lisinopril [Prinivil] 20 mg PO DAILY #30 tablet 06/23/16 [Rx] Tiotropium [Spiriva HandiHaler] 18 mcg INH DAILY #30 cap 06/23/16 [Rx] atorvaSTATin [Lipitor] 40 mg PO BEDTIME #30 tablet 06/23/16 [Rx] Past Medical History HEENT History: Reports: Impaired Vision Other HEENT History: Patient wears glasses. Cardiovascular History: Reports: High Cholesterol, Hypertension Gastrointestinal History: Reports: Diverticulosis [employer] History: Reports: Musculoskeletal History: Reports: Osteoporosis Neurological History: Reports: CVA, Seizure Other Neuro History: see below Psychiatric History: Reports: Depression Endocrine/Metabolic History: Reports: Hypothyroidism, Osteoporosis Oncologic (Cancer) History: Reports: Colon Dermatologic History: Reports: Eczema Other Dermatologic History: denies - Infectious Disease History Infectious Disease History: Reports: Chicken Pox - Past Surgical History Cardiovascular Surgical History: Reports: Carotid Endarterectomy GI Surgical History: Reports: Colonoscopy Social & Family History - Family History Family Medical History: Noncontributory Oncologic: Reports: Colon - Tobacco Use Smoking Status *Q: Never Smoker Second Hand Smoke Exposure: No - Caffeine Use Caffeine Use: Reports: Coffee - Alcohol Use Days Per Week of Alcohol Use: 0 - Recreational Drug Use Recreational Drug Use: No Drug Use in Last 12 Months: No - Living Situation & Occupation Living situation: Reports: Extended Care Facility Review of Systems - Review of Systems Review Of Systems: See Below Constitutional: Reports: No Symptoms Eyes: Reports: No Symptoms Ears: Reports: No Symptoms Nose: Reports: No Symptoms Mouth/Throat: Reports: No Symptoms Respiratory: Reports: No Symptoms Cardiovascular: Reports: No Symptoms GI/Abdominal: Reports: No Symptoms Genitourinary: Reports: No Symptoms Musculoskeletal: Reports: Joint Pain (right wrist ) Skin: Reports: No Symptoms Neurological: Reports: No Symptoms Psychiatric: Reports: No Symptoms ED EXAM, GENERAL - Physical Exam Exam: See Below Exam Limited By: No Limitations General Appearance: Alert, WD/WN, No Apparent Distress Eye Exam: Bilateral Eye: EOMI, PERRL Ears: Normal External Exam Nose: Normal Inspection Throat/Mouth: Normal Inspection Head: Atraumatic, Normocephalic Neck: Normal Inspection, Supple Respiratory/Chest: No Respiratory Distress, Lungs Clear Cardiovascular: Normal Peripheral Pulses, Regular Rate, Rhythm Peripheral Pulses: 2+: Radial (L), Radial (R) GI/Abdominal: Normal Bowel Sounds Back Exam: Normal Inspection Extremities: Normal Inspection, Limited Range of Motion (right wrist) Neurological: Alert, Oriented, CN II-XII Intact Psychiatric: Normal Affect Skin Exam: Warm, Dry, Intact, Normal Color Lymphatic: No Adenopathy ED TRAUMA EXTREMITY PROCEDURES - Splinting Right Upper Extremity Splint Site: right wrist Pre-Procedure NV Status: Normal Post-Procedure NV Status: Normal Splint Material: Aluminum-Foam Splint Design: Volar Applied & Form Fitted By: Nurse Provider Post-Splint Application NV Check: NV Status Normal Complications: No Course - Vital Signs Last Recorded V/S: Last Vital Signs Temp 37.0 C 03/07/17 15:59 Pulse 66 03/07/17 15:59 Resp 16 03/07/17 15:59 BP 176/70 H 03/07/17 15:59 Pulse Ox 98 03/07/17 15:59 - Orders/Labs/Meds Meds: Medications Discontinued Medications Generic Name Dose Route Start Last Admin Trade Name Freq PRN Reason Stop Dose Admin Hydrocodone Bitart/Acetaminophen 1 tab 03/07/17 16:41 03/07/17 16:50 [place] 325-5 Mg PO 03/07/17 16:42 1 tab ONETIME ONE Administration Departure - Departure Time of Disposition: 16:44 Disposition: Home, Self-Care 01 Condition: Good Clinical Impression: Closed Colles' fracture Qualifiers: Encounter type: initial encounter Laterality: right Qualified Code(s): S52.531A - Colles' fracture of right radius, initial encounter for closed fracture - Discharge Information Instructions: Wrist Fracture Treated With Immobilization, [id number] Forms: ED Department Discharge Additional Instructions: Rest Elevate and apply Ice Pack Wear Splint as directed For Pain: HYDROCODONE 5/325 take 1 every 4-6 hours as needed # 20 F/U w/Orthopedic Clinic @ [facility] in [place] on Thursday03/09/2017 [phone]
[2017-03-07] MEDS ORDERED: Acetaminophen/HYDROcodone 325-5 MG Tab PO ONE (16:41)
== END 2017-03-07 17:18 | disposition home or self-care (01) ==
LOC: DL.ED 15:49
DX: S52.531A Colles' fracture of right radius, initial encounter for closed fracture (principal); E78.00 Pure hypercholesterolemia, unspecified; I10 Essential (primary) hypertension; Z88.5 Allergy status to narcotic agent; Z88.8 Allergy status to other drugs, medicaments and biological substances; Z79.82 Long term (current) use of aspirin; Z79.899 Other long term (current) drug therapy; W19.XXXA Unspecified fall, initial encounter
CPT/HCPCS: 73090; 99283; A9270